=== PATIENT | female | born 1970 | race Caucasian/White ===

== ENCOUNTER 2018-08-25 07:51 | Emergency (ER) | payer BC ==
[2018-08-25] MEDS ORDERED: NA CHLORIDE 0.9% 1,000 ML ONE (09:16)
[2018-08-25] MEDS ORDERED: KETOROLAC 30 MG/ML INJ ONE (09:16)
[2018-08-25] MEDS ORDERED: ONDANSETRON 4 MG/2 ML VIAL ONE (09:16)
[2018-08-25 09:40] LABS: Absolute Monocytes 0.4 K/uL (0.1-1.3); Absolute Neutrophil 4.6 K/uL (1.8-8.0); Basophils % 1.1 % (0-1.3); Eosinophils % 3.5 % (0-4.4); Hematocrit 40.7 % (36.0-45.0); Lymphocytes % 15.9 % (15.3-44.8); MCV 86.9 fL (80-100); MPV 8.8 fL (7.6-11.3); RBC Red Blood Cell Count 4.68 M/uL (3.86-4.86)
[2018-08-25 09:44] LABS: Albumin 3.7 g/dL (3.4-5.0); Bilirubin Total 0.4 mg/dL (0.2-1.0); Potassium 4.2 mmol/L (3.5-5.1)
--- NOTE | 2018-08-25 10:31 | RAD REPORT ---
EXAM DESCRIPTION: US - CP - 08/25/2018 9:37 am CLINICAL HISTORY: DIZZINESS Drowsiness, syncope, headache COMPARISON: No comparisons TECHNIQUE: Real-time sonographic evaluation of both carotid systems was performed. Doppler interroga tion was performed with waveform tracing bilaterally. FINDINGS: Normal high resistance waveforms are noted in both external carotid arteries. The common c arotid arteries and internal carotid arteries show normal low resistance waveforms. No significant plaque formation is seen. Peak systolic and end diastolic velocity values and the ICA/ CCA ratios are in the non-hemodynamically significant range. Antegrade flow seen in both vertebral arteries. IMPRESSION: No significant atherosclerotic changes noted. No evidence of a hemodynamically significant stenosis.
--- NOTE | 2018-08-25 10:52 | RAD REPORT ---
EXAM DESCRIPTION: CT - C Spine Wo Con - 08/25/2018 10:12 am CLINICAL HISTORY: PAIN Radiculopathy COMPARISON: No comparisons FINDINGS: The cervical vertebral body heights and disc spaces are maintained. No evidence of acute cervical spine fracture or subluxation. Prevertebral soft tissues are normal in thickness. Left posterior ethmoid and sphenoid sinus opacification noted. Small tonsilliths are present bilatera lly. The left submandibular gland appears significantly fatty replaced or atrophic. Several mildly pr ominent lymph nodes are present left submandibular region. IMPRESSION: No significant cervical spine abnormality is detected. All CT scans are performed using dose optimization technique as appropriate and may include automated exposure control or mA/KV adjustment according to patient size.
--- NOTE | 2018-08-25 10:54 | RAD REPORT ---
EXAM DESCRIPTION: CT - Head angio - 08/25/2018 10:12 am CLINICAL HISTORY: headache COMPARISON: No comparisons TECHNIQUE: CT head without contrast CT angiography of the head was performed with MIPs. All CT scans are performed using dose optimization technique as appropriate and may include automated exposure control or mA/KV adjustment according to patient size. FINDINGS: No acute intracranial hemorrhage, hydrocephalus or extra-axial fluid collection. No midlin e shift is seen. The calvarium is intact. Opacification of posterior left ethmoid air cells and sphen oid sinus noted. The paranasal sinuses and mastoids are otherwise clear. No evidence of aneurysm is detected. No flow-limiting stenosis or vascular malformation identified. Antegrade flow is seen in the vertebral arteries. The vertebral arteries are codominant. The visualized dural venous sinuses are patent. IMPRESSION: No significant flow abnormality is detected. No acute intracranial abnormality.
--- NOTE | 2018-08-25 11:09 | EDPHYS ---
Physician Documentation [facility] Name: April Pinto Age: 47 yrs Sex: Female : 1970 Arrival Date: 08/25/2018 Time: 07:58 Bed 14 Private MD: Bong Buckley ED Physician Dieter Acosta HPI: 08/25 09:02 This 47 yrs old Female presents to ER via Ambulatory with complaints of harpreet Headache. 09:02 The patient complains of pain to the forehead, left side of the back of head, left harpreet occipital area and left base of the skull. The patient describes the headache as constant. Onset: The symptoms/episode began/occurred 2 day(s) ago. Associated signs and symptoms: Pertinent positives: nausea. Severity of symptoms: At its worst the pain was mild, in the emergency department the pain is unchanged. Headache History: Denies prior headaches. The symptoms are alleviated by nothing. the symptoms are aggravated by nothing. The patient has not experienced similar symptoms in the past. 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 - Social history:: Smoking status: . - Ebola Screening: : Patient negative for fever greater than or equal to 101.5 degrees Fahrenheit, and additional compatible Ebola Virus Disease symptoms. - Family history:: not pertinent. ROS: 09:02 Constitutional: Negative for fever, chills, and weight loss, Eyes: Negative for injury, harpreet pain, redness, and discharge, ENT: Negative for injury, pain, and discharge, Neck: Negative for injury, pain, and swelling, Cardiovascular: Negative for chest pain, palpitations, and edema, Respiratory: Negative for shortness of breath, cough, wheezing, and pleuritic chest pain, Abdomen/GI: Negative for abdominal pain, nausea, vomiting, diarrhea, and constipation, Back: Negative for injury and pain, : Negative for injury, bleeding, discharge, and swelling, MS/Extremity: Negative for injury and deformity, Skin: Negative for injury, rash, and discoloration, Psych: Negative for depression, anxiety, suicide ideation, homicidal ideation, and hallucinations, Allergy/Immunology: Negative for hives, rash, and allergies, Endocrine: Negative for neck swelling, polydipsia, polyuria, polyphagia, and marked weight changes, Hematologic/Lymphatic: Negative for swollen nodes, abnormal bleeding, and unusual bruising. 09:02 Neuro: Positive for headache, of the left base of the skull and left occipital area and left side of the back of head. Exam: :02 Constitutional: This is a well developed, well nourished patient who is awake, alert, harpreet and in no acute distress. Head/Face: Normocephalic, atraumatic. Eyes: Pupils equal round and reactive to light, extra-ocular motions intact. Lids and lashes normal. Conjunctiva and sclera are non-icteric and not injected. Cornea within normal limits. Periorbital areas with no swelling, redness, or edema. ENT: Nares patent. No nasal discharge, no septal abnormalities noted. Tympanic membranes are normal and external auditory canals are clear. Oropharynx with no redness, swelling, or masses, exudates, or evidence of obstruction, uvula midline. Mucous membranes moist. Neck: Trachea midline, no thyromegaly or masses palpated, and no cervical lymphadenopathy. Supple, full range of motion without nuchal rigidity, or vertebral point tenderness. No Meningismus. Chest/axilla: Normal chest wall appearance and motion. Nontender with no deformity. No lesions are appreciated. Cardiovascular: Regular rate and rhythm with a normal S1 and S2. No gallops, murmurs, or rubs. Normal PMI, no JVD. No pulse deficits. Respiratory: Lungs have equal breath sounds bilaterally, clear to auscultation and percussion. No rales, rhonchi or wheezes noted. No increased work of breathing, no retractions or nasal flaring. Abdomen/GI: Soft, non-tender, with normal bowel sounds. No distension or tympany. No guarding or rebound. No evidence of tenderness throughout. Back: No spinal tenderness. No costovertebral tenderness. Full range of motion. Female : Normal external genitalia. Skin: Warm, dry with normal turgor. Normal color with no rashes, no lesions, and no evidence of cellulitis. MS/ Extremity: Pulses equal, no cyanosis. Neurovascular intact. Full, normal range of motion. Neuro: Awake and alert, GCS 15, oriented to person, place, time, and situation. Cranial nerves II-XII grossly intact. Motor strength 5/5 in all extremities. Sensory grossly intact. Cerebellar exam normal. Normal gait. Psych: Awake, alert, with orientation to person, place and time. Behavior, mood, and affect are within normal limits. Vital Signs: 08:00 BP 134 / 50; Pulse 66; Resp 18; Temp 98.7(O); Pulse Ox 96% on R/A; Pain 8/10; tw2 09:00 BP 103 / 48; Pulse 58; Resp 17; Pulse Ox 95% on R/A; tw2 10:15 BP 128 / 52; Pulse 68; Resp 17; Pulse Ox 99% on R/A; tw2 10:59 BP 111 / 63; Pulse 59; Resp 17; Pulse Ox 97% on R/A; tw2 11:17 BP 128 / 52; Pulse 68; Resp 17; Pulse Ox 100% on R/A; tw2 MDM: 08:14 Patient medically screened. [facility] 09:04 Data reviewed: vital signs, nurses notes, lab test result(s), EKG, radiologic studies, [facility] CT scan. 08/25 09:02 Order name: CBC with Diff; Complete Time: 10:44 [facility] 08/25 09:02 Order name: Comprehensive Metabolic Panel; Complete Time: 10:44 [facility] 08/25 09:06 Order name: Urine Culture [facility] 08/25 09:12 Order name: Troponin (emerg Dept Use Only) [facility] 08/25 09:13 Order name: Troponin (Emerg Dept Use Only); Complete Time: 10:44 EDMD 08/25 09:02 Order name: CT C Spine; Complete Time: 11:08 [facility] 08/25 09:04 Order name: Head angio; Complete Time: 11:08 EDMD 08/25 09:19 Order name: US Carotid Artery Bilateral; Complete Time: 10:44 [facility] 08/25 11:01 Order name: Urine Dipstick--Ancillary (enter results) 08/25 09:06 Order name: Urine Dipstick-Ancillary (obtain specimen); Complete Time: 10:56 [facility] Administered Medications: 09:08 Drug: Zofran 4 mg Route: IVP; Site: right antecubital; tw2 10:57 Follow up: Response: No adverse reaction; Nausea is decreased tw2 09:10 Drug: TORadol 30 mg Route: IVP; Site: right antecubital; tw2 10:57 Follow up: Response: No adverse reaction; Pain is unchanged, physician notified tw2 09:12 Drug: NS 0.9% 1000 ml Route: IV; Rate: 1 bolus; Site: right antecubital; tw2 11:17 Follow up: IV Status: Order to discontinue infusion; Order to discontinue infusion, pt tw2 refused to wait for completion of IV fluids; IV Intake: 600ml Disposition: 08/25/18 11:08 Discharged to Home. Impression: Headache, Strain of muscle, fascia and tendon at neck level. - Condition is Stable. - Discharge Instructions: General Headache Without Cause, Cervical Sprain, Bbir-ue-[id number], General Headache Without Cause, Audj-ol-Xoxo. - Prescriptions for Fioricet with Codeine 50- 325-40-30 mg Oral capsule - take 1 capsule by ORAL route every 4 hours as needed not to exceed 6 capsules per 24hrs; 24 capsule. Zofran 4 mg Oral Tablet - take 1 tablet by ORAL route every 12 hours As needed; 14 tablet. Motrin IB 200 mg Oral Tablet - take 1 tablet by ORAL route every 6 hours As needed as needed with food; 20 tablet. - Medication Reconciliation Form, Thank You Letter, Antibiotic Education, Prescription Opioid Use form. - Follow up: Bong Buckley; When: 2 - 3 days; Reason: Recheck today's complaints, Continuance of care, Re-evaluation by your physician. Follow up: Louie Martinez; When: 2 - 3 days; Reason: Recheck today's complaints, Re-evaluation by your physician. - Problem is new. - Symptoms have improved. Signatures: Dispatcher [employer] [facility] Dieter Acosta MD MD cha Wise, Tara, RN RN tw2 Corrections: (The following items were deleted from the chart) 09:21 09:04 Abdomen Limited+US.RAD.MITCH ordered. [facility] 11:19 11:08 08/25/2018 11:08 Discharged to Home. Impression: Headache; Strain of muscle, tw2 fascia and tendon at neck level. Condition is Stable. Discharge Instructions: General Headache Without Cause, Cervical Sprain, Athq-zg-Isno, General Headache Without Cause, Owrv-gl-Sjpq. Prescriptions for Fioricet with Codeine 10-967-26-30 mg Oral capsule - take 1 capsule by ORAL route every 4 hours as needed not to exceed 6 capsules per 24hrs; 24 capsule, Zofran 4 mg Oral Tablet - take 1 tablet by ORAL route every 12 hours As needed; 14 tablet, Motrin IB 200 mg Oral Tablet - take 1 tablet by ORAL route every 6 hours As needed as needed with food; 20 tablet. and Forms are Medication Reconciliation Form, Thank You Letter, Antibiotic Education, Prescription Opioid Use. Follow up: Bong Buckley; When: 2 - 3 days; Reason: Recheck today's complaints, Continuance of care, Re-evaluation by your physician. Follow up: Louie Martinez; When: 2 - 3 days; Reason: Recheck today's complaints, Re-evaluation by your physician. Problem is new. Symptoms have improved. harpreet
--- NOTE | 2018-08-25 11:09 | ER ---
Nurse's Notes [facility] Name: April Pinto Age: 47 yrs Sex: Female : 1970 Arrival Date: 08/25/2018 Time: 07:58 Bed 14 Private MD: Bong Buckley Diagnosis: Headache;Strain of muscle, fascia and tendon at neck level Presentation: 08/25 07:59 Presenting complaint: Patient states: i have a headache at the base of my neck and i am tw2 nauseous, it started 3 days ago, not similar to previous headache because this wont go away and those headaches are usually stress headaches, i took ibuprofen it takes the edge off but it doesn't go away completley. Transition of care: patient was not received from another setting of care. Onset of symptoms was August 25, 2018. Risk Assessment: Do you want to hurt yourself or someone else? Patient reports no desire to harm self or others. Initial Sepsis Screen: Does the patient meet any 2 criteria? No. Patient's initial sepsis screen is negative. Does the patient have a suspected source of infection? No. Patient's initial sepsis screen is negative. Care prior to arrival: None. 07:59 Method Of Arrival: Ambulatory tw2 07:59 Acuity: LUDMILA 3 tw2 Triage Assessment: 08:03 Headache History: The patient has had previous headaches and this one is different than tw2 previous episodes, and this one is more severe than previous episodes. General: Appears in no apparent distress. well groomed, Behavior is calm, cooperative, appropriate for age. Pain: Pain currently is 8 out of 10 on a pain scale. Pain began 2-3 days ago. Also complains of nausea. Neuro: Level of Consciousness is awake, alert, obeys commands, Oriented to person, place, time, situation. 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 - Social history:: Smoking status: . - Ebola Screening: : Patient negative for fever greater than or equal to 101.5 degrees Fahrenheit, and additional compatible Ebola Virus Disease symptoms. - Family history:: not pertinent. Screenin:04 Abuse screen: Denies threats or abuse. Nutritional screening: No deficits noted. tw2 Tuberculosis screening: No symptoms or risk factors identified. Fall Risk None identified. Assessment: 08:07 General: Appears in no apparent distress. well groomed, Behavior is calm, cooperative, tw2 appropriate for age. Pain: Complains of pain in base of the skull and neck Also complains of nausea, denies photophobia. Neuro: Level of Consciousness is awake, alert, obeys commands, Oriented to person, place, time, situation. Cardiovascular: Heart tones S1 S2 Patient's skin is warm and dry. Respiratory: Airway is patent Respiratory effort is even, unlabored, Respiratory pattern is regular, symmetrical, Breath sounds are clear bilaterally. GI: No signs and/or symptoms were reported involving the gastrointestinal system. Abdomen is round Bowel sounds present X 4 quads. : No signs and/or symptoms were reported regarding the genitourinary system. EENT: No signs and/or symptoms were reported regarding the EENT system. Derm: No signs and/or symptoms reported regarding the dermatologic system. Musculoskeletal: Range of motion: intact in all extremities. 08:44 Reassessment: provider at bedside at this time. tw2 09:00 Reassessment: Patient appears in no apparent distress at this time. No changes from tw2 previously documented assessment. Patient and/or family updated on plan of care and expected duration. Pain level reassessed. Patient is alert, oriented x 3, equal unlabored respirations, skin warm/dry/pink. 10:16 Reassessment: Patient appears in no apparent distress at this time. Patient and/or tw2 family updated on plan of care and expected duration. Pain level reassessed. Patient is alert, oriented x 3, equal unlabored respirations, skin warm/dry/pink. pt back from CT at this time. c/o neck pain, better but not gone, provider notified. 11:18 Reassessment: Patient appears in no apparent distress at this time. No changes from tw2 previously documented assessment. Patient and/or family updated on plan of care and expected duration. Pain level reassessed. Patient is alert, oriented x 3, equal unlabored respirations, skin warm/dry/pink. Vital Signs: 08:00 BP 134 / 50; Pulse 66; Resp 18; Temp 98.7(O); Pulse Ox 96% on R/A; Pain 8/10; tw2 09:00 BP 103 / 48; Pulse 58; Resp 17; Pulse Ox 95% on R/A; tw2 10:15 BP 128 / 52; Pulse 68; Resp 17; Pulse Ox 99% on R/A; tw2 10:59 BP 111 / 63; Pulse 59; Resp 17; Pulse Ox 97% on R/A; tw2 11:17 BP 128 / 52; Pulse 68; Resp 17; Pulse Ox 100% on R/A; tw2 ED Course: 07:58 Patient arrived in ED. mr 07:58 Bong Buckley MD is Private Physician. mr 07:58 Loreto Mathew, [place] is Primary Nurse. tw2 07:59 Bed in low position. Adult w/ patient. Pulse ox on. NIBP on. tw2 08:00 Triage completed. tw2 08:01 Arm band placed on. tw2 08:14 Dieter Acosta MD is Attending Physician. harpreet 08:30 Inserted saline lock: 22 gauge in right antecubital area, using aseptic technique. tw2 Blood collected. 09:38 US Carotid Artery Bilateral In Process Unspecified. EDMS 10:13 Head angio In Process Unspecified. EDMS 10:13 CT C Spine In Process Unspecified. EDMS 11:08 Bong Buckley MD is Referral Physician. harpreet 11:08 Louie Martinez MD is Referral Physician. harpreet 11:13 Awaiting: completion of IV fluids PRIOR to discharge. tw2 11:18 No provider procedures requiring assistance completed. IV discontinued, intact, tw2 bleeding controlled, No redness/swelling at site. Pressure dressing applied. Administered Medications: 09:08 Drug: Zofran 4 mg Route: IVP; Site: right antecubital; tw2 10:57 Follow up: Response: No adverse reaction; Nausea is decreased tw2 09:10 Drug: TORadol 30 mg Route: IVP; Site: right antecubital; tw2 10:57 Follow up: Response: No adverse reaction; Pain is unchanged, physician notified tw2 09:12 Drug: NS 0.9% 1000 ml Route: IV; Rate: 1 bolus; Site: right antecubital; tw2 11:17 Follow up: IV Status: Order to discontinue infusion; Order to discontinue infusion, pt tw2 refused to wait for completion of IV fluids; IV Intake: 600ml Intake: 11:17 IV: 600ml; Total: 600ml. tw2 Outcome: 11:08 Discharge ordered by . harpreet 11:18 Discharged to home ambulatory, with significant other. tw2 11:18 Condition: stable 11:18 Discharge instructions given to patient, significant other, Instructed on discharge instructions, follow up and referral plans. no drinking with medication, no driving heavy equipment, medication usage, Demonstrated understanding of instructions, follow-up care, medications, Prescriptions given X 3. 11:19 Patient left the ED. tw2 Signatures: Dispatcher [employer] EDMS Dieter Acosta MD MD cha Rivera, Mirlande Loreto Adams, RN RN tw2 Corrections: (The following items were deleted from the chart) 10:59 10:15 BP 111 / 63; Pulse 59bpm; Resp 17bpm; Pulse Ox 97% RA; tw2 tw2
[2018-08-25 12:27] LABS: Urine Blood NEGATIVE (NEG); Urine Glucose NEGATIVE (NEG); Urine Protein NEGATIVE (NEG); Urine Specific Gravity 1.005 (1.005-1.030); Urine pH 5.5 (5.0-7.0)
== END 2018-08-25 11:19 | disposition home or self-care (01) ==
LOC: ER 07:51
DX: S16.1XXA Strain of muscle, fascia and tendon at neck level, initial encounter (principal)
CPT/HCPCS: 36415; 70496; 72125; 80053; 81003; 84484; 85025; 87086; 87088; 93880; 96361; 96374; 96375; 99284; J2405; J7030; Q9967

== ENCOUNTER 2021-07-09 12:38 | Emergency (ER) | payer BC ==
[2021-07-09] MEDS ORDERED: dexAMETHasone 4 MG/ML VIAL ONE (13:52)
--- NOTE | 2021-07-09 13:52 | ER ---
Nurse's Notes [facility] Name: April Pinto Age: 50 yrs Sex: Female : 1970 Arrival Date: 07/09/2021 Time: 12:40 Bed 23 Private MD: Diagnosis: Rash and other nonspecific skin eruption Presentation: 07/09 12:46 Chief complaint: Patient states: Got into some poison hyacinth about a week and a half ago, jl7 swelling to face and neck; bilateral arms with swelling and blisters. Steroid shot on Tuesday, prednisone x 5 days, hydroxyzine, tramadol, but it's still pretty bad. Coronavirus screen: At this time, the client does not indicate any symptoms associated with coronavirus-19. Ebola Screen: No symptoms or risks identified at this time. Initial Sepsis Screen: Does the patient meet any 2 criteria? No. Patient's initial sepsis screen is negative. Does the patient have a suspected source of infection? No. Patient's initial sepsis screen is negative. Risk Assessment: Do you want to hurt yourself or someone else? Patient reports no desire to harm self or others. Onset of symptoms was June 29, 2021. 12:46 Method Of Arrival: Ambulatory jl7 12:46 Acuity: LUDMILA 4 jl7 Triage Assessment: 12:50 General: Appears in no apparent distress. uncomfortable, Behavior is calm, cooperative, jl7 appropriate for age. Pain: Denies pain. Derm: Rash noted that is draining clear fluid, red, on face, right arm, left arm and neck. 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 - Social history:: Smoking status: Patient denies any tobacco usage or history of. Screenin:38 Abuse screen: Denies threats or abuse. Denies injuries from another. Nutritional tc5 screening: No deficits noted. Tuberculosis screening: No symptoms or risk factors identified. Fall Risk None identified. Assessment: 13:35 General: Appears uncomfortable, Behavior is calm, cooperative, appropriate for age. tc5 Derm: Reports pt reports she got into some poison hyacinth 2 weeks ago and face is swelling more and more. Vital Signs: 12:46 BP 155 / 95; Pulse 90; Resp 17; Temp 98.2; Pulse Ox 100% ; Weight 99.79 kg; Pain 0/10; jl7 14:01 BP 123 / 75; Pulse 72; Resp 16; Pulse Ox 100% ; vg1 ED Course: 12:40 Patient arrived in ED. as 12:48 Scott Troncoso PA is PHCP. [facility] 12:48 Dieter Acosta MD is Attending Physician. [facility] 12:49 Triage completed. jl7 12:50 Arm band placed on right wrist. 7 13:25 Nataliia Hilton, RN is Primary Nurse. tc5 Administered Medications: 13:35 Drug: Decadron (dexamethasone) 10 mg Route: IM; Site: left gluteus; tc5 14:01 Follow up: Response: No adverse reaction vg1 Outcome: 13:51 Discharge ordered by . [facility] 14:01 Patient left the ED. vg1 Signatures: Scott Troncoso PA PA jmm Martinez, Amelia as Leal, Jahala RN RN jl7 Heather Busby, RN RN vg1 Nataliia Hilton, RN RN tc5
--- NOTE | 2021-07-09 13:52 | EDPHYS ---
Physician Documentation [facility] Name: April Pinto Age: 50 yrs Sex: Female : 1970 Arrival Date: 07/09/2021 Time: 12:40 Bed 23 Private MD: Dieter Clarke HPI: 07/09 12:56 This 50 yrs old Female presents to ER via Ambulatory with complaints of jmm Facial Swelling - poison hyacinth. 12:56 The patient's rash thought to be caused by Dermatitis. Onset: The symptoms/episode jmm began/occurred gradually, 2 week(s) ago. Associated signs and symptoms: Pertinent positives: burning sensation, itching, Pertinent negatives: swelling of lips, swelling of throat, swelling of tongue. This is a 50-year-old female with history of atrial fibrillation the presents emerge department with complaints of worsening facial rash. Patient states she was exposed to poison hyacinth approximately 2 weeks ago. Saw her PCP at [facility] this past Tuesday and prescribed prednisone 40 mg daily along with Atarax. Patient states she has had little relief and actually developed increased swelling to her face. Denies vomiting, shortness of breath but does have some sensation of swelling in her throat. Patient is able to tolerate secretions. 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 - Social history:: Smoking status: Patient denies any tobacco usage or history of. ROS: 12:56 Constitutional: Negative for fever, chills, and weight loss, Cardiovascular: Negative jmm for chest pain, palpitations, and edema, Respiratory: Negative for shortness of breath, cough, wheezing, and pleuritic chest pain. 12:56 Skin: Positive for rash. 12:56 All other systems are negative. Exam: 12:56 Constitutional: This is a well developed, well nourished patient who is awake, alert, jmm and in no acute distress. 12:56 Eyes: EOMI, no conjunctival erythema appreciated ENT: Moist Mucus Membranes Neck: Trachea midline, Supple Chest/axilla: Normal chest wall appearance and motion. Cardiovascular: Regular rate and rhythm. No edema appreciated Respiratory: Normal respirations, no respiratory distress appreciated 12:56 Back: Normal ROM 12:56 Head/face: Facial swelling, rash, consistent with poison hyacinth dermatitis. 12:56 ENT: no pharyngeal edema appreciated. 12:56 Skin: Poison hyacinth dermatitis. 12:56 Neuro: Orientation: is normal, Mentation: is normal, Memory: is normal. 12:56 Psych: Behavior/mood is pleasant, cooperative. Vital Signs: 12:46 BP 155 / 95; Pulse 90; Resp 17; Temp 98.2; Pulse Ox 100% ; Weight 99.79 kg; Pain 0/10; jl7 14:01 BP 123 / 75; Pulse 72; Resp 16; Pulse Ox 100% ; vg1 MDM: 12:56 Patient medically screened. harpreet 13:50 Data reviewed: vital signs, nurses notes. Counseling: I had a detailed discussion with saroj the patient and/or guardian regarding: the historical points, exam findings, and any diagnostic results supporting the discharge/admit diagnosis, the need for outpatient follow up, to return to the emergency department if symptoms worsen or persist or if there are any questions or concerns that arise at home. ED course: Patient is alert Patient is alert nontoxic in appearance in the ED. Patient advised to follow-up with her PCP for reevaluation. Will increase steroids and taper for longer duration. Patient is otherwise given strict return precautions. Patient understood and agrees plan of care.. Administered Medications: 13:35 Drug: Decadron (dexamethasone) 10 mg Route: IM; Site: left gluteus; tc5 14:01 Follow up: Response: No adverse reaction vg1 Disposition Summary: 07/09/21 13:51 Discharge Ordered Location: Home saroj Condition: Stable saroj Diagnosis - Rash and other nonspecific skin eruption saroj Followup: saroj - With: Private Physician - When: 2 - 3 days - Reason: Recheck today's complaints, Continuance of care, Re-evaluation by your physician Discharge Instructions: - Discharge Summary Sheet saroj - Rash, Adult saroj Forms: - Medication Reconciliation Form saroj - Thank You Letter saroj - Antibiotic Education saroj - Prescription Opioid Use [facility] Prescriptions: - Prednisone 20 mg Oral Tablet - take 3 tablets by ORAL route once daily 12 days Please take 3 tabs by mouth jmm daily for 3 days, then 2 tabs by mouth daily for 3 days, then take 1 tab by mouth daily for 3 days, then take one half tab by mouth daily for 3 days; 20 tablet; Refills: 0, Product Selection Permitted Addendum: 07/13/2021 06:55 Co-signature as Attending Physician, Dieter Acosta MD I agree with the assessment and c becerril plan of care. Signatures: Dieter Acosta MD MD cha Mickail, Joel, PA PA jmm Leal, Jahala RN RN jl7 Nataliia Hilton RN RN tc5 Heather Busby RN vg1
[2021-07-09] MEDS ORDERED: dexAMETHasone 10 MG/ML VIAL ONE (13:56)
[2021-07-09 14:20] VITALS: TEMP 98.2; O2SAT 100
[2021-07-09 14:21] VITALS: BP 123/75
== END 2021-07-09 14:01 | disposition home or self-care (01) ==
LOC: ER 12:38
DX: R21 Rash and other nonspecific skin eruption (principal)
CPT/HCPCS: 96372; 99282; J1100

== ENCOUNTER 2023-10-27 19:23 | Observation (INO) | payer BC ==
--- OUTSIDE RECORDS SUMMARY | 2023-10-27 19:27 | XMS REPORT | Continuity of Care Document ---
Author Name Unknown Address [address] [place] [address] [facility]connect Address 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 Name Role Phone ADRIANE BRISENO Attending Clinician Unava ilLEELA Velazquez Attending Clinician Unavaila SCAR Nguyen Attending Clinician Unavailable KRYSTAL MIKE Attending Clinician Unavailable ADRIANE BRISENO Attending Clinician Unava ilyancy RESTREPO MD Attending Clinician Unavailab BLATA Wise Attending Clinician Unavailable CAROLYN MCKINLEY Attending Clinician Unavaila JN Carnes Attending Clinician Unavailab le LAB90 Attending Clinician Unavailable Adriane Briseno MD Attending Clinician [phone] PARRISH SHIRLEY Attending Clinician Unavailable RICHIE MAHAJAN Attending Clinician Unavailable Payers Payer Name Policy Type Policy Number Effective Date Expirati on Date Source [facility] 9 [id number] 2022 00:00:[address] [facility] [id number] 00:00:00 Problems Condition Name Condition Details Condition Category Status Onset Date Resolution Date Last Treatment Date Treating Clinician Comments Source No known active problems No known active problems Disease Tamiko Beltran - Externa l Allergies, Adverse Reactions, Alerts Allergy Name Allergy Type Status Severity Reaction(s) Onset Date Inactive Date Treating Clinician Comments Source NO KNOWN ALLERGIE S Drug Class Active [facility] Social History Social Habit Start Date Stop Date Quantity Comments Source Gender identity Lady colon Seybold - External Sexual orientation Paula vargas Seybold - External History SDOH Alcohol Frequency Tamiko Dorantes bold - External History SDOH Alcohol Std Drinks Tamiko Nogueira ybold - External History SDOH Alcohol Binge Tamiko Flynnold - External Alcohol intake 2023-08-12 00:00:00 2023-08-12 00:00:00 Current drinker of alcohol (finding) Tamiko Beltran - External History of Social function 2023-04-28 00:00:00 2023-04-28 00:00:00 Tamiko Beltran - External Tobacco use and exposure 2022-06-21 00:00:00 2022-06-21 00:00:00 Smokeless tobacco non-user Tamiko Beltran - External Alcohol Comment 2022-06-21 00:00:00 2022-06-21 00:00:00 Once a year Tamiko Beltran - External Sex Ass[birth year] At 1970 00:00:00 1970 00[birth year]:00 Tamiko Beltran - External Smoking Status Start Date Stop Date Source Never smoked tobacco Tamiko Beltran - External Medications Ordered Medication Name Filled Medication Name Start Date Stop Date Current Medication? Ordering Clinician Indication Dosage Frequency Signature (SIG) Comments Components Source Loratadine 10 MG oral Capsule 2022-10 11:56: 44 08-12 00:00 :00 No 10mg Take 1 capsule (10 mg total) by mouth daily Tamiko Vazquez Externa l Nystatin-Tr iamcinolone 401454-1.1 UNIT/GM-% apply externally Cream 2022-10 00:00: 00 Yes [id number] Apply to affected area twice daily as needed for rash. Tamiko Vazquez Externa l Pantoprazol e Sodium 20 MG oral Tablet Delayed Response 2022-10 00:00: 00 Yes [id number] 20mg Take 1 tablet (20 mg total) by mouth daily. Tamiko weber Sucralfate 1 g oral Tablet 2022-10 012 00:00: 00 Yes 1g Take 1 tablet (1 g total) by mouth at bedtime. Tamiko weber Ondansetron HCl 4 MG oral Tablet 04-28 00:00: 00 Yes [id number] 4mg Q.[id number] 3D Take 1 tablet (4 mg total) by mouth every 8 hours as needed for nausea Tamiko weber Ondansetron HCl 4 MG oral Tablet 04-28 00:00: 00 Yes [id number] 4mg Q.[id number] 3D Take 1 tablet (4 mg total) by mouth every 8 hours as needed for nausea Tamiko weber PAXLOVID STANDARD (30) (300/100) Therapy Pack 04-28 00:00: 00 05-04 04:59 :00 No [id number] Take two 150 mg nirmatrelv ir (pink) tablets with one 100 mg ritonavir (white) tablet by mouth two times daily for 5 days Tamiko weber Pantoprazol e Sodium 20 MG oral Tablet Delayed Response 04-15 00:00: 00 Yes [id number] 20mg Take 1 tablet (20 mg total) by mouth daily Tamiko weber Loratadine 10 MG oral Capsule 01-04 15:46: 18 Yes 10mg Take 1 capsule (10 mg total) by mouth daily Tamiko weber Loratadine 10 MG oral Capsule 01-04 15:46: 18 Yes 10mg Take 1 capsule (10 mg total) by mouth daily Tamiko weber Citalopram Hydrobromid e 20 MG oral Tablet 01-04 00:00: 00 Yes [id number] 20mg Take 1 tablet (20 mg total) by mouth daily Tamiko weber Citalopram Hydrobromid e 20 MG oral Tablet 01-04 00:00: 00 Yes [id number] 20mg Take 1 tablet (20 mg total) by mouth daily Tamiko Seybold - Externa l Citalopram Hydrobromid e 20 MG oral Tablet 4-04 00:00: 00 08-12 00:00 :00 No [id number] 20mg Take 1 tablet (20 mg total) by mouth daily Tamiko Seybold - Externa l Loratadine 10 MG oral Capsule 3-20 10:41: 12 Yes 10mg Take 10 mg by mouth daily Tamiko Seybold - Externa l KETOCONAZOL E, TOPICAL, (Nizoral) 2 % apply externally Shampoo 320 00:00: 00 Yes [id number] Apply as shampoo X 5 minutes, then rinse. Use 3-5 times per week for itch and scale Tamiko Seybold - Externa l KETOCONAZOL E, TOPICAL, (Nizoral) 2 % apply externally Shampoo 320 00:00: 00 Yes [id number] Apply as shampoo X 5 minutes, then rinse. Use 3-5 times per week for itch and scale Tamiko Seybold - Externa l KETOCONAZOL E, TOPICAL, (Nizoral) 2 % apply externally Shampoo 320 00:00: 00 Yes [id number] Apply as shampoo X 5 minutes, then rinse. Use 3-5 times per week for itch and scale Tamiko Seybold - Externa l KETOCONAZOL E, TOPICAL, (Nizoral) 2 % apply externally Shampoo 320 00:00: 00 08-12 00:00 :00 No [id number] Apply as shampoo X 5 minutes, then rinse. Use 3-5 times per week for itch and scale Tamiko Seybold - Externa l Cetirizine (ZYRTEC) 10 MG oral Tablet 2-27 00:00: 00 Yes Tamiko Seybold - Externa l Cetirizine (ZYRTEC) 10 MG oral Tablet 2-27 00:00: 00 Yes Tamiko Seybold - Externa l Cetirizine (ZYRTEC) 10 MG oral Tablet 2-27 00:00: 00 Yes Tamiko Seybold - Externa l Cetirizine (ZYRTEC) 10 MG oral Tablet 2-27 00:00: 00 08-12 00:00 :00 No Tamiko weber Loratadine (Claritin) 10 MG oral Capsule 2-17 11:24: 07 Yes 10mg Take 10 mg by mouth daily Tamiko weber Cyanocobala min (B-12) 3000 MCG oral Capsule 2022-0 2-06 00:00: 00 Yes Tamiko Noblea l Cyanocobala min (B-12) 3000 MCG oral Capsule 2022-0 2-06 00:00: 00 Yes Tamiko Beltran - Aidea l Cyanocobala min (B-12) 3000 MCG oral Capsule 2022-0 2-06 00:00: 00 Yes Tamiko Noblea l Cyanocobala min (B-12) 3000 MCG oral Capsule 0 2 00:00: 00 08-12 00:00 :00 No Tamiko weber Vitamin D, Ergocalcife rol, 1.25 MG (06664 UT) oral Capsule 0 11-02 00:00: 00 Yes [id number] Take 1 capsule (50,000 units total) by mouth once a week Tamiko weber Vitamin D, Ergocalcife rol, 1.25 MG (49000 UT) oral Capsule 0 11-02 00:00: 00 Yes [id number] Take 1 capsule (50,000 units total) by mouth once a week Tamiko weber Vitamin D, Ergocalcife rol, 1.25 MG (39452 UT) oral Capsule 0 11-02 00:00: 00 Yes [id number] Take 1 capsule (50,000 units total) by mouth once a week Tamiko weber Vitamin D, Ergocalcife rol, 1.25 MG (10913 UT) oral Capsule 0 11-02 00:00: 00 Yes [id number] Take 1 capsule (50,000 units total) by mouth once a week Tamiko weber Vitamin D, Ergocalcife rol, 1.25 MG (57800 UT) oral Capsule 1-31 00:00: 00 08-12 00:00 :00 No [id number] Take 1 capsule (50,000 units total) by mouth once a week Tamiko weber Pantoprazol e Sodium 20 MG oral Tablet Delayed Response -16 00:00: 00 Yes [id number] TAKE 1 TABLET(20 MG) BY MOUTH DAILY Tamiko weber Pantoprazol e Sodium 20 MG oral Tablet Delayed Response -16 00:00: 00 Yes [id number] TAKE 1 TABLET(20 MG) BY MOUTH DAILY Tamiko weber Pantoprazol e Sodium 20 MG oral Tablet Delayed Response -16 00:00: 00 Yes [id number] TAKE 1 TABLET(20 MG) BY MOUTH DAILY Tamiko weber Pantoprazol e Sodium 20 MG oral Tablet Delayed Response 10-18 00:00: 00 Yes [id number] TAKE 1 TABLET(20 MG) BY MOUTH DAILY Tamiko weber Nitrofurant oin Monohyd Macro (Macrobid) 100 MG oral Capsule 2021-10 00:00: 00 Yes [id number] 100mg Take 1 capsule (100 mg total) by mouth 2 times daily Tamiko weber Fluconazole 150 MG oral Tablet 2021-10 00:00: 00 Yes Tamiko weber Nitrofurant oin Monohyd Macro (Macrobid) 100 MG oral Capsule 2021-10- 00:00: 00 11-19 00:00 :00 No [id number] 100mg Take 1 capsule (100 mg total) by mouth 2 times daily Tamiko weber Fluconazole 150 MG oral Tablet 2021-10 00:00: 00 11-19 00:00 :00 No Tamiko weber TRIMETHOPRI M-POLYMYXIN B 67786-1.1 UNIT/ML-% ophthalmic Solution 2021-10 0-20 00:00: 00 Yes [id number] 1[drp] Apply 1 drop to eye every 4 (four) hours Tamiko weber TRIMETHOPRI M-POLYMYXIN B 67478-5.1 UNIT/ML-% ophthalmic Solution 2021-10 0- 00:00: 00 Yes [id number] 1[drp] Apply 1 drop to eye every 4 (four) hours Tamiko weber TRIMETHOPRI M-POLYMYXIN B 63820-5.1 UNIT/ML-% ophthalmic Solution 2021-10 0 00:00: 00 12-20 00:00 :00 No [id number] 1[drp] Apply 1 drop to eye every 4 (four) hours Tamiko weber Cetirizine HCl (ZYRTEC ALLERGY OR) 2021-10 0 09:24: 31 07-05 00:00 :00 No 10mg Take 10 mg by mouth daily Tamiko weber Dexamethaso ne (DECADRON) 4 MG oral tablet 2021-10 0 00:00: 00 Yes [id number] 4mg Take 1 tablet (4 mg total) by mouth daily (with breakfast) Tamiko weber Fluocinonid e 0.05 % apply externally Solution 06-21 00:00: 00 07-05 00:00 :00 No [id number] Apply sparingly to rash of scalp BID Mon-Tue PRN. NOT for face or folds Tamiko weber Amoxicillin -Pot Clavulanate 500-125 MG oral Tablet 2020-10 0-08 00:00: 00 Yes [id number] 1{tbl} Take 1 tablet by mouth 3 times daily Tamiko Beltran Amoxicillin -Pot Clavulanate 500-125 MG oral Tablet 2020-10 0 00:00: 00 Yes [id number] 1{tbl} Take 1 tablet by mouth 3 times daily Tamiko Beltran traMADol-Ac etaminophen 37.5-325 MG oral Tablet 2020-10 0- 00:00: 00 Yes [id number] 1{tbl} Q6H Take 1 tablet by mouth every 6 hours as needed for pain Tamiko Beltran traMADol-Ac etaminophen 37.5-325 MG oral Tablet 2020-10 0- 00:00: 00 Yes [id number] 1{tbl} Q6H Take 1 tablet by mouth every 6 hours as needed for pain Tamiko Ruby traMADol-Ac etaminophen 37.5-325 MG oral Tablet 2020-10 0-06 00:00: 00 Yes [id number] 1{tbl} Q6H Take 1 tablet by mouth every 6 hours as needed for pain Tamiko Nogueiravladislavhelder hydrOXYzine HCl 25 MG oral Tablet 2020-10 0-05 00:00: 00 Yes [id number] 25mg Q.[id number] 3D Take 1 tablet (25 mg total) by mouth 3 times daily as needed for itching Tamiko Nogueiravladislavhelder hydrOXYzine HCl 25 MG oral Tablet 2020-10 005 00:00: 00 Yes [id number] 25mg Q.[id number] 3D Take 1 tablet (25 mg total) by mouth 3 times daily as needed for itching Tamikoearlene Beltran Methylpredn isolone Acetate (DEPO-MEDRO L) 40 mg/mL 2020-10 0 16:45: 00 07-06 16:30 :00 No [id number] 40mg Tamiko Ruby Methylpredn isolone Acetate (DEPO-MEDRO L) 40 mg/mL 2020-10 0 16:45: 00 07-06 16:30 :00 No [id number] 40mg 40 mg, intramuscu lar, ONCE, 1 dose, On Tue07/06/21 at 1145 Tamiko Beltran predniSONE 20 MG oral tablet 2020-10 0-04 00:00: 00 07-12 04:59 :00 No [id number] 40mg Take 2 tablets (40 mg total) by mouth daily for 5 days Tamiko Beltran predniSONE 20 MG oral tablet 2020-10 0-04 00:00: 00 07-12 04:59 :00 No [id number] 40mg Take 2 tablets (40 mg total) by mouth daily for 5 days Tamiko Beltran Mupirocin (BACTROBAN) 2 % apply externally Ointment 2020-10 0-03 00:00: 00 Yes APPLY TOPICALLY TO THE AFFECTED AREA TWICE DAILY DIRECTED Tamiko Beltran Triamcinolo ne Acetonide 0.1 % apply externally Ointment 2020-10 0-03 00:00: 00 Yes APPLY TOPICALLY TO THE AFFECTED AREA TWICE DAILY DIRECTED Tamiko Beltran Mupirocin (BACTROBAN) 2 % apply externally Ointment 2020-10 0 00:00: 00 07-17 00:00 :00 No APPLY TOPICALLY TO THE AFFECTED AREA TWICE DAILY DIRECTED Tamiko Beltran Triamcinolo ne Acetonide 0.1 % apply externally Ointment 2020-10 00:00: 00 07-17 00:00 :00 No APPLY TOPICALLY TO THE AFFECTED AREA TWICE DAILY DIRECTED Tamiko Beltran Propranolol HCl 20 MG oral Tablet 01-26 00:00: 00 Yes 20mg Take 20 mg by mouth daily Tamiko Vazquez Externa tia Propranolol HCl 20 MG oral Tablet 01-26 00:00: 00 Yes 20mg Take 20 mg by mouth daily Tamiko Vazquez Externa tia Propranolol HCl 20 MG oral Tablet 01-26 00:00: 00 Yes 20mg Take 20 mg by mouth daily Tamiko Noblea tia Propranolol HCl 20 MG oral Tablet 01-26 00:00: 00 Yes 20mg Take 20 mg by mouth daily Tamiko Noblea tia Propranolol HCl 20 MG oral Tablet 01-26 00:00: 00 Yes 20mg Take 1 tablet (20 mg total) by mouth daily Tamiko Noblea tia Propranolol HCl 20 MG oral Tablet 01-26 00:00: 00 Yes 20mg Take 20 mg by mouth daily Tamiko Beltran Propranolol HCl 20 MG oral Tablet 01-26 00:00: 00 Yes 20mg Take 1 tablet (20 mg total) by mouth daily Tamiko Vazquez Externa tia Propranolol HCl 20 MG oral Tablet 01-26 00:00: 00 Yes 20mg Take 1 tablet (20 mg total) by mouth daily. Tamiko Vazquez Externa tia Propranolol HCl 20 MG oral Tablet 01-26 00:00: 00 Yes 20mg Take 20 mg by mouth daily Tamiko Beltran Propranolol HCl 20 MG oral Tablet 01-26 00:00: 00 Yes 20mg Take 20 mg by mouth daily Tamiko Seybold Immunizations Ordered Immunization Name Filled Immunization Name Date Status Comments Source Tdap- (Boostrix, Adacel) 2016-09-07 00:00:00 Completed Tamiko Flynnold - External Tdap- (Boostrix, Adacel) 2016-09-07 00:00:00 Completed Tamiko Beltran - External Tdap- (Boostrix, Adacel) 2016-09-07 00:00:00 Completed Tamiko Beltran - External Tdap- (Boostrix, Adacel) 2016-09-07 00:00:00 Completed Tamiko Beltran - External Tdap- (Boostrix, Adacel) 2016-09-07 00:00:00 Completed Tamiko Beltran - External Tdap- (Boostrix, Adacel) 2016-09-07 00:00:00 Completed Tamiko Beltran - External Tdap- (Boostrix, Adacel) 2016-09-07 00:00:00 Completed Tamiko Beltran Tdap- (Boostrix, Adacel) 2016-09-07 00:00:00 Completed Tamiko Beltran Tdap- (Boostrix, Adacel) 2016-09-07 00:00:00 Completed Tamiko Beltran Tdap- (Boostrix, Adacel) Unknown Completed Tamiko Beltran - External Vital Signs Vital Name Observation Time Observation Value Comments S ource Systolic blood pressure 2023-08-12 20:56:00 130 mm[Hg] Tamiko Thomas ld - External Diastolic blood pressure 2023-08-12 20:56:00 82 mm[Hg] Tamiko Thomas ld - External Heart rate 2023-08-12 20:56:00 58 /min Raulse corby Beltran - External Body temperature 2023-08-12 20:56:00 36.39 Annamarie Tamiko Beltran - External Respiratory rate 2023-08-12 20:56:00 15 /min Tamiko Beltran - External Body height 2023-08-12 20:56:00 154.9 cm Lady isaiah Beltran - External Body weight 2023-08-12 20:56:00 102.513 kg Lady isaiah Seybold - External BMI 2023-08-12 20:56:00 42.70 kg/m2 Lady ey Seybold - External Systolic blood pressure 2023-01-04 20:37:00 126 mm[Hg] Tamiko Seybo ld - External Diastolic blood pressure 2023-01-04 20:37:00 68 mm[Hg] Tamiko Seybo ld - External Heart rate 2023-01-04 20:37:00 76 /min Kelse y Seybold - External Respiratory rate 2023-01-04 20:37:00 16 /min Tamiko Seybold - External Body height 2023-01-04 20:37:00 154.9 cm Lady ey Seybold - External Body weight 2023-01-04 20:37:00 102.059 kg Lady ey Seybold - External BMI 2023-01-04 20:37:00 42.51 kg/m2 Lady ey Seybold - External Body weight 2022-12-20 15:40:00 93.895 kg Lady ey Seybold - External BMI 2022-12-20 15:40:00 39.11 kg/m2 Lady ey Seybold - External Systolic blood pressure 2022-11-19 17:24:00 121 mm[Hg] Tamiko Seybo ld - External Diastolic blood pressure 2022-11-19 17:24:00 85 mm[Hg] Tamiko Seybo ld - External Heart rate 2022-11-19 17:24:00 71 /min Raulse y Seybold - External Body temperature 2022-11-19 17:24:00 36.83 Annamarie Tamiko Seybold - External Respiratory rate 2022-11-19 17:24:00 12 /min Tamiko Seybold - External Body height 2022-11-19 17:24:00 154.9 cm Lady ey Seybold - External Body weight 2022-11-19 17:24:00 94.167 kg Lady ey Seybold - External BMI 2022-11-19 17:24:00 39.23 kg/m2 Lady ey Seybold - External Systolic blood pressure 2022-10-21 17:30:00 148 mm[Hg] Tamiko Seybo ld - External Diastolic blood pressure 2022-10-21 17:30:00 92 mm[Hg] Tamiko Seybo ld - External Heart rate 2022-10-21 17:30:00 77 /min Kelse y Seybold - External Body temperature 2022-10-21 17:30:00 36.67 Annamarie Tamiko Seybold - External Respiratory rate 2022-10-21 17:30:00 15 /min Tamiko Seybold - External Body height 2022-10-21 17:30:00 157.5 cm Lady ey Seybold - External Body weight 2022-10-21 17:30:00 101.606 kg Lady ey Seybold - External BMI 2022-10-21 17:30:00 40.97 kg/m2 Lady ey Seybold - External Systolic blood pressure 2022-07-05 15:37:00 112 mm[Hg] Tamiko Seybo ld - External Diastolic blood pressure 2022-07-05 15:37:00 68 mm[Hg] Tamiko Seybo ld - External Heart rate 2022-07-05 15:37:00 92 /min Kelse y Seybold - External Body temperature 2022-07-05 15:37:00 36.28 Annamarie Tamiko Seybold - External Respiratory rate 2022-07-05 15:37:00 14 /min Tamiko Seybold - External Body height 2022-07-05 15:37:00 157.5 cm Lady ey Seybold - External Body weight 2022-07-05 15:37:00 98.431 kg Lady ey Seybold - External BMI 2022-07-05 15:37:00 39.69 kg/m2 Lady ey Seybold - External Systolic blood pressure 2021-07-17 14:40:00 129 mm[Hg] Tamiko Seybo ld Diastolic blood pressure 2021-07-17 14:40:00 69 mm[Hg] Tamiko Seybo ld Heart rate 2021-07-17 14:40:00 80 /min Kelse y Seybold Body temperature 2021-07-17 14:40:00 36.33 Annamarie Tamiko Seybold Respiratory rate 2021-07-17 14:40:00 14 /min Tamiko Seybold Body height 2021-07-17 14:40:00 157.5 cm Lady ey Seybold Body weight 2021-07-17 14:40:00 98.884 kg Lady ey Seybold BMI 2021-07-17 14:40:00 39.87 kg/m2 Lady ey Seybold Systolic blood pressure 2021-07-17 14:40:00 129 mm[Hg] Tamiko Seybo ld Diastolic blood pressure 2021-07-17 14:40:00 69 mm[Hg] Tamiko Seybo ld Heart rate 2021-07-17 14:40:00 80 /min Kelse y Seybold Body temperature 2021-07-17 14:40:00 36.33 Annamarie Tamiko Seybold Respiratory rate 2021-07-17 14:40:00 14 /min Tamiko Seybold Body height 2021-07-17 14:40:00 157.5 cm Lady ey Seybold Body weight 2021-07-17 14:40:00 98.884 kg Lady ey Seybold BMI 2021-07-17 14:40:00 39.87 kg/m2 Lady ey Seybold Heart rate 2021-07-10 14:29:00 82 /min Kelse y Seybold Body temperature 2021-07-10 14:29:00 36.5 Annamarie Tamiko Seybold Respiratory rate 2021-07-10 14:29:00 12 /min Tamiko Seybold Body height 2021-07-10 14:29:00 157.5 cm Lady ey Seybold Body weight 2021-07-10 14:29:00 99.791 kg Lady ey Seybold BMI 2021-07-10 14:29:00 40.24 kg/m2 Lady ey Seybold Heart rate 2021-07-06 15:57:00 92 /min Kelse y Seybold Body temperature 2021-07-06 15:57:00 36.56 Annamarie Tamiko Seybold Respiratory rate 2021-07-06 15:57:00 12 /min Tamiko Seybold Body height 2021-07-06 15:57:00 157.5 cm Lady ey Seybold Body weight 2021-07-06 15:57:00 99.791 kg Lady ey Seybold BMI 2021-07-06 15:57:00 40.24 kg/m2 Lady ey Seybold Heart rate 2021-07-06 15:57:00 92 /min Kelse y Seybold Body temperature 2021-07-06 15:57:00 36.56 Annamarie Tamiko Beltran Respiratory rate 2021-07-06 15:57:00 12 /min Tamiko Beltran Body height 2021-07-06 15:57:00 157.5 cm Lady Beltran Body weight 2021-07-06 15:57:00 99.791 kg Lady Beltran BMI 2021-07-06 15:57:00 40.24 kg/m2 Lady Beltran Encounters Start Date/Time End Date/Time Encounter Type Admission Type Attending [facility] Care Department Encounter ID Source 2021-09-24 11:34:47 Outpatient ADRIANE BRISENO [facility] [id number] [facility] 2023-10-25 00:00:00 2023-10-25 00:00:[address] [id number] Tam[facility] 2023-10-19 00:00:00 2023-10-19 00:00:00 Outpatient TAMIKO GASTON [id number] [facility] 2023-10-06 00:00:00 2023-10-06 00:00:00 Outpatient SCAR MARIO [id number] [facility] 2023-09-20 00:00:00 2023-09-20 00:00:00 Outpatient SCAR MARIO [id number] [facility] 2023-09-15 00:00:00 2023-09-15 00:00:00 Outpatient SCAR MARIO [id number] [facility] 2023-08-12 15:00:00 2023-08-12 15:00:00 Outpatient SCAR MARIO [id number] [facility] 2023-08-06 00:00:00 2023-08-06 00:00:00 Outpatient SCAR MARIO [id number] [facility] 2023-07-21 10:45:00 2023-07-21 10:45:00 Outpatient KRYSTAL MIKE [id number] [facility] 2023-07-07 10:00:00 2023-07-07 10:00:00 Outpatient KRYSTAL MIKE TAMIKO GASTON [id number] Tamiko Seybold 2023-07-04 00:00:00 2023-07-04 00:00:00 Outpatient TAMIKO GASTON [id number] Tamiko Seybold 2023-07-04 00:00:00 2023-07-04 00:00:00 Outpatient TAMIKO GASTON [id number] Tamiko Seybold 2023-06-24 00:00:00 2023-06-24 00:00:00 Outpatient TAMIKO GASTON [id number] Tamiko Seybold 2023-06-09 00:00:00 2023-06-09 00:00:00 Outpatient SCAR MARIO [id number] Tamiko Seybold 2023-05-27 00:00:00 2023-05-27 00:00:00 Outpatient TAMIKO GASTON [id number] [facility] 2023-05-24 00:00:00 2023-05-24 00:00:00 Outpatient ADRIANE BRISENO [id number] Tamiko Seybold 2023-05-24 00:00:00 2023-05-24 00:00:00 Outpatient MD TAMIKO LUJAN [id number] [facility] 2023-05-23 00:00:00 2023-05-23 00:00:00 Outpatient ADRIANE BRISENO [id number] Tamiko Seybold 2023-05-09 00:00:00 2023-05-09 00:00:00 Outpatient ADRIANE BRISENO [id number] Tamiko Seybold 2023-05-09 00:00:00 2023-05-09 00:00:00 Outpatient ADRIANE BRISENO [id number] Tamiko Seybold 2023-05-09 00:00:00 2023-05-09 00:00:00 Outpatient TAMIKO GASTON [id number] Tamiko Seybold 2023-05-09 00:00:00 2023-05-09 00:00:00 Outpatient TAMIKO GASTON [id number] Tamiko Seybold 2023-05-09 00:00:00 2023-05-09 00:00:00 Outpatient TAMIKO GASTON [id number] Tamiko [facility] 2023-04-28 09:30:00 2023-04-28 09:30:00 Outpatient KRYSTAL MIKE TAMIKO GASTON [id number] Tam[facility] 2023-04-28 08:45:00 2023-04-28 08:45:00 Outpatient BALTA SHELTON TAMIKO GASTON [id number] Tam[facility] 2023-04-19 00:00:00 2023-04-19 00:00:00 Outpatient MD [facility] LUJAN [id number] [facility]14 00:00:00 2023-04-14 00:00:00 Outpatient SCAR MARIO [id number] [facility] 2023-04-13 00:00:00 2023-04-13 00:00:00 Outpatient SCAR MARIO [id number] [facility] 2023-04-13 00:00:00 2023-04-13 00:00:00 Outpatient SCAR MARIO [id number] [facility] 2023-02-22 15:30:00 2023-02-22 15:30:[address] [id number] [facility] 2023-01-19 00:00:00 2023-01-19 00:00:00 Outpatient SCAR MARIO [id number] Tam[facility] 2023-01-06 00:00:00 2023-01-06 00:00:[address] [id number] Tam[facility] 2023-01-04 15:30:00 2023-01-04 15:30:[address] LE[address] [id number] Tam[facility] 2022-12-24 10:00:00 2022-12-24 10:00:00 Outpatient CAROLYN MCKINLEY [id number] [facility] 2022-12-20 10:30:00 2022-12-20 10:30:00 Outpatient JN BARRETO TAMIKO GASTON [id number] [facility] 2022-12-17 11:00:00 2022-12-17 11:00:00 Outpatient CAROLYN MCKINLEY TAMIKO GASTON [id number] [facility] 2022-12-06 09:45:00 2022-12-06 09:45:00 Outpatient TAMIKO GASTON [id number] [facility] 2022-12-01 00:00:00 2022-12-01 00:00:00 Outpatient HUNDTia, SCAR GASTON [id number] [facility] 2022-11-22 00:00:00 2022-11-22 00:00:00 Outpatient HUNDTia, SCAR GASTON [id number] [facility] 2022-11-19 11:15:00 2022-11-19 11:15:00 Outpatient CODIE MCKINLEYSANDY GASTON [id number] [facility] 2022-11-05 00:00:00 2022-11-05 00:00:00 Outpatient HUNDL, SCAR GASTON [id number] [facility] 2022-11-04 00:00:00 2022-11-04 00:00:00 Outpatient HUNDTia, SCAR GASTON [id number] [facility] 2022-11-03 00:00:00 2022-11-03 00:00:00 Outpatient HUNDL, SCAR GASTON [id number] [facility] 2022-11-02 00:00:00 2022-11-02 00:00:00 Outpatient HUNDL, SCAR GASTON [id number] Tamiko Seybold 2022-10-26 09:10:00 2022-10-26 09:10:00 Outpatient LABValeria GASTON [id number] Tamiko Seybhelder 2022-10-21 11:00:00 2022-10-21 11:00:00 Outpatient HUNDL, SCAR GASTON [id number] [facility] 00:00:00 2022-10-21 00:00:00 Outpatient HUNDL, SCAR TAMIKO GASTON [id number] Tamiko Seybold 2022-10-18 00:00:00 2022-10-18 00:00:00 Outpatient HUNDL, SCAR TAMIKO GASTON [id number] Tamiko Seybold 2022-10-17 00:00:00 2022-10-17 00:00:00 Outpatient HUNDL, SCAR TAMIKO GASTON [id number] Tamiko Seybold 2022-10-06 09:45:00 2022-10-06 09:45:00 Outpatient MARY LOUPRIYANKJN TAMIKO GASTON [id number] Tamiko Seybold 2022-10-06 00:00:00 2022-10-06 00:00:00 Outpatient HUNDTia, SCAR TAMIKO GASTON [id number] Tamiko Seybold 2022-10-06 00:00:00 2022-10-06 00:00:00 Outpatient TAMIKO GASTON [id number] Tamiko Seybold 2022-07-26 00:00:00 2022-07-26 00:00:00 Outpatient HUNDL, SCAR TAMIKO GASTON [id number] Tamiko Seybold 2022-07-22 10:25:00 2022-07-22 10:25:00 Outpatient LAB90 TAMIKO GASTON [id number] Tamiko Seybold 2022-07-22 09:30:00 2022-07-22 09:30:00 Outpatient HUNDL, SCAR TAMIKO GASTON [id number] Tamiko Seybold 2022-07-05 10:30:00 2022-07-05 10:30:00 Outpatient HUNDL, SCAR TAMIKO GASTON [id number] Tamiko Seybold 2022-07-05 10:00:00 2022-07-05 10:00:00 Outpatient ADRIANE BRISENO [id number] Tamiko Seybold 2022-06-21 10:30:00 2022-06-21 10:30:00 Outpatient MARY LOUJN HOPE TAMIKO GASTON [id number] Tamiko Seybold 2022-06-20 00:00:00 2022-06-20 00:00:00 Outpatient SCAR MARIO TAMIKO TAMIKO [id number] [facility] 2022-06-17 00:00:00 2022-06-17 00:00:00 Outpatient SCAR MARIO TAMIKO GASTON [id number] [facility] 2022-06-15 16:00:00 2022-06-15 16:00:00 Outpatient SCAR MARIO TAMIKO GASTON [id number] [facility] 2022-05-03 00:00:00 2022-05-03 00:00:00 Outpatient ADRIANE BRISENO TAMIKO GASTON [id number] Tamiko [facility] 2022-03-26 16:45:00 2022-03-26 16:45:00 Outpatient LIYZ TAMIKO GASTON [id number] Tamiko [facility] 2022-03-26 16:15:00 2022-03-26 16:30:00 Office Visit Adriane Briseno [place] [id number] Tamiko [facility] 2021-10-30 00:00:00 2021-10-30 00:00:00 Outpatient TAMIKO GASTON [id number] Tamiko [facility] 2021-10-30 00:00:00 2021-10-30 00:00:00 Outpatient TAMIKO GASTON [id number] Tamiko [facility] 2021-10-08 00:00:00 2021-10-08 00:00:00 Outpatient ADRIANE BRISENO [id number] Tamiko [facility] 2021-09-16 00:00:00 2021-09-16 00:00:00 Outpatient ADRIANE BRISENO [id number] Tamiko [facility] 2021-09-16 00:00:00 2021-09-16 00:00:00 Outpatient ADRIANE BRISENO [id number] Tamiko [facility] 2021-09-15 00:00:00 2021-09-15 00:00:00 Outpatient TAMIKO GASTON [id number] Tamiko [facility] 2021-09-14 00:00:00 2021-09-14 00:00:00 Outpatient ADRIANE BRISENO [facility]IKO GASTON [id number] [facility] 2021-09-14 00:00:00 2021-09-14 00:00:00 Outpatient ADRIANE BRISENO TAMIKO GASTON [id number] Tamiko [facility] 2021-09-10 15:21:00 2021-09-10 23:59:00 Outpatient FINNTY HDZAN [facility] [id number] [facility] 2021-08-18 00:00:00 2021-08-18 00:00:00 Outpatient TY BRISENOJEANNE GASTON [id number] Tamiko [facility] 2021-08-17 00:00:00 2021-08-17 00:00:00 Outpatient TY BRISENOJEANNE GASTON [id number] Tamiko [facility] 2021-08-06 00:00:00 2021-08-06 00:00:00 Outpatient FINNTY HDZJEANNE GASTON [id number] [facility] 2021-07-27 00:00:00 2021-07-27 00:00:00 Outpatient ADRIANE BRISENO TAMIKO GASTON [id number] [facility] 2021-07-17 09:30:52 2021-07-17 10:00:52 Office Visit Adriane Briseno [place] [id number] 2021-07-17 09:30:52 2021-07-17 10:00:52 Office Visit Adriane Briseno [place] [id number] Tamiko [facility] 2021-07-17 00:00:00 2021-07-17 00:00:00 Outpatient ADRIANE BRISENO TAMIKO GASTON [id number] Tamiko [facility] 2021-07-10 09:23:42 2021-07-10 09:53:42 Office Visit Adriane Briseno [place] [id number] [facility] 2021-07-09 00:00:00 2021-07-09 00:00:00 Outpatient ADRIANE BRISENO TAMIKO GASTON [id number] [facility] 2021-07-08 00:00:00 2021-07-08 00:00:00 Outpatient ADRIANE BRISENO TAMIKO GASTON [id number] Tamiko [facility] 2021-07-07 00:00:00 2021-07-07 00:00:00 Outpatient ADRIANE BRISENO TAMIKO GASTON [id number] Tamiko [facility] 2021-07-06 10:56:35 2021-07-06 11:26:35 Office Visit Adriane Briseno [place] [id number] Tamiko [facility] 2021-07-06 10:56:35 2021-07-06 11:26:35 Office Visit Adriane Briseno [place] [id number] 2021-05-19 16:55:00 2021-05-19 16:55:00 Outpatient LAB90 TAMIKO GASTON [id number] Tamiko [facility] 2021-05-14 08:30:00 2021-05-14 08:30:00 Outpatient LAB90 TAMIKO GASTON [id number] Tamiko [facility] 2021-04-27 10:30:00 2021-04-27 10:30:00 Outpatient ADRIANE BRISENO TAMIKO GASTON [id number] Tamiko [facility] 2021-04-23 16:30:00 2021-04-23 16:30:00 Outpatient ADRIANE BRISENO TAMIKO GASTON [id number] Tamiko [facility] 2021-04-22 15:00:00 2021-04-22 15:00:00 Outpatient PARRISH SHIRLEY [id number] [facility] 2020-12-02 11:10:00 2020-12-02 11:10:00 Outpatient RICHIE MUNOZ [facility] [id number] [facility] 2020-12-02 11:10:00 2020-12-02 11:10:00 Outpatient RICHIE MUNOZ [facility] [id number] [facility] 2020-11-04 11:10:00 2020-11-04 11:10:00 Outpatient RICHIE MUNOZ [facility] [id number] [facility]
[2023-10-27] MEDS ORDERED: ASPIRIN 81 MG CHEWABLE TABLET ONE (19:51)
[2023-10-27] MEDS ORDERED: LORAZEPAM 0.5 MG TABLET ONE (20:01)
[2023-10-27] MEDS ORDERED: LORazepam 2 MG/ML VIAL ONE (20:04)
[2023-10-27 20:11] LABS: Absolute Lymphocytes (CBC) 1.5 K/uL (0.7-4.9); Hematocrit 38.6 % (36.0-45.0); Lymphocytes % 15.6 % (15.3-44.8); MCV 80.6 fL (80-100); MPV 7.5 fL (7.6-11.3); Platelets 333 thou/uL (152-406); RBC Red Blood Cell Count 4.79 M/uL (3.86-4.86)
[2023-10-27 20:18] LABS: Protime INR 1.11
[2023-10-27 20:34] LABS: Albumin 3.6 g/dL (3.4-5.0); Bilirubin Direct 0.1 mg/dL (0-0.2); Bilirubin Indirect, Calculated 0.3 mg/dL (0.2-0.8); Bilirubin Total 0.4 mg/dL (0.2-1.0); Magnesium 2.3 mg/dL (1.6-2.4); Potassium 3.4 mEq/L (3.5-5.1); Protein, Total 7.4 g/dL (6.4-8.2); Troponin High Sensitivity 3.8 pg/mL (<58.9)
--- NOTE | 2023-10-27 20:47 | RAD REPORT ---
EXAM DESCRIPTION: [place] Single View10/27/2023 7:58 pm CLINICAL HISTORY: Chest pain COMPARISON: 2009 FINDINGS: The lungs appear clear of acute infiltrate. The heart is normal size IMPRESSION: No acute abnormalities displayed
[2023-10-27] MEDS ORDERED: MORPHINE 4 MG/ML SYR ONE (22:22)
[2023-10-27] MEDS ORDERED: POTASS/SODIUM PHOSPHATE 1 PKT POWD.PACK ONE (22:22)
[2023-10-27] MEDS ORDERED: LABETALOL 20 MG/4ML SYRINGE IV ONE (22:23)
[2023-10-27] MEDS ORDERED: NA CHLORIDE 0.9% 1,000 ML ONE (22:23)
[2023-10-27 22:30] LABS: Specific Gravity 1.016 (1.005-1.030); Urine Bacteria None Seen /HPF (<20); Urine Bilirubin NEGATIVE (Negative); Urine Blood Negative (Negative); Urine Clarity Turbid (Clear); Urine Color Light-Yellow (Yellow); Urine Glucose NEGATIVE (Negative); Urine Mucus Slight /HPF (None Seen); Urine Protein NEGATIVE (Negative); Urine RBC <5 /HPF (None Seen); Urine Urobilinogen Normal (Normal); Urine pH 5.5 (5.0-7.0)
[2023-10-27 22:34] LABS: Barbiturates NEGATIVE (NEGATIVE); Benzodiazepines NEGATIVE (NEGATIVE); Cocaine NEGATIVE (NEGATIVE); METHAMPHETAM NEGATIVE (NEGATIVE); Methadone NEGATIVE (NEGATIVE); Opiates NEGATIVE (NEGATIVE); Phencyclidine NEGATIVE (NEGATIVE); THC Cannibis NEGATIVE (NEGATIVE)
--- NOTE | 2023-10-27 23:59 | EDPHYS ---
Physician Documentation [facility] Name: April Pinto Age: 52 yrs Sex: Female : 1970 Arrival Date: 10/27/2023 Time: 19:23 Bed 16 Private MD: ED Physician Juanjo Yin HPI: 10/27 19:45 This 52 yrs old Female presents to ER via Unassigned with complaints of Chest Pain. cp 19:45 The patient or guardian reports chest pain that is located primarily in the substernal cp area. 19:45 Onset: today. The pain does not radiate. Associated signs and symptoms: Pertinent cp positives: palpitations, Pertinent negatives: abdominal pain, diaphoresis, lower extremity pain, lower extremity swelling, vomiting. The chest pain is described as a heaviness, a pressure. Duration: The patient or guardian reports a single episode, that is still ongoing. Severity of pain: in the emergency department the pain is unchanged despite home interventions. Historical: - Allergies: 19:49 No Known Allergies; tl4 - Home Meds: 19:49 propranolol 10 mg Oral tab 1 tab 3 times per day [Active]; citalopram 10 mg oral tablet tl4 1 tab daily [Active]; - PMHx: 19:49 Atrial fibrillation; Anxiety; tl4 - PSHx: 19:49 Cholecystectomy; tl4 - Immunization history:: Adult Immunizations unknown. - Social history:: Smoking status: Patient denies any tobacco usage or history of. ROS: 19:50 Constitutional: Negative for body aches, chills, fever, poor PO intake, cp 19:50 Eyes: Negative for injury, pain, redness, and discharge, cp 19:50 ENT: Negative for drainage from ear(s), ear pain, sore throat, difficulty swallowing, difficulty handling secretions, 19:50 Cardiovascular: Positive for chest pain, palpitations, Negative for edema, 19:50 Respiratory: Negative for cough, shortness of breath, wheezing, 19:50 Abdomen/GI: Negative for abdominal pain, vomiting, diarrhea, constipation, 19:50 Back: Negative for pain at rest, pain with movement, 19:50 Neuro: Negative for altered mental status, dizziness, headache, syncope, weakness, 19:50 All other systems are negative, Exam: 19:55 Constitutional: The patient appears in no acute distress, alert, awake, cp non-diaphoretic, non-toxic, well developed, well nourished, obese, 19:55 Head/Face: Normocephalic, atraumatic. cp 19:55 Eyes: Periorbital structures: appear normal, Conjunctiva: normal, no exudate, no injection, Sclera: no appreciated abnormality, Lids and lashes: appear normal, bilaterally, 19:55 ENT: External ear(s): are unremarkable, Nose: is normal, Mouth: Lips: moist, Oral mucosa: pink and intact, moist, Posterior pharynx: is normal, airway is patent, no erythema, no exudate, 19:55 Neck: ROM/movement: is normal, is supple, without pain, no range of motions limitations, 19:55 Chest/axilla: Inspection: normal, 19:55 Cardiovascular: Rate: normal, Rhythm: regular, Edema: is not appreciated, JVD: is not appreciated, 19:55 Respiratory: the patient does not display signs of respiratory distress, Respirations: normal, no use of accessory muscles, no retractions, labored breathing, is not present, Breath sounds: are clear throughout, no decreased breath sounds, no stridor, no wheezing, 19:55 Abdomen/GI: Inspection: Palpation: abdomen is soft and non-tender, in all quadrants, 19:55 Back: pain, is absent, ROM is normal, 19:55 Neuro: Orientation: to person, place \T\ time. Mentation: is normal, Motor: is normal, Sensation: is normal, Vital Signs: 19:46 BP 182 / 90; Pulse 87; Resp 14; Temp 98.3(O); Pulse Ox 96% on R/A; Pain 0/10; tl4 20:30 BP 137 / 75; Pulse 76; Resp 11; Pulse Ox 95% on R/A; me1 21:27 BP 155 / 84; Pulse 130; Resp 12; Pulse Ox 97% on R/A; Pain 5/10; me1 21:27 BP 144 / 82; Pulse 84; Resp 13; Pulse Ox 97% on R/A; me1 22:06 BP 144 / 82; Pulse 79; Pulse Ox 96% on R/A; nw1 22:40 BP 143 / 83; Pulse 127; Resp 19; Pulse Ox 98% on R/A; nw1 23:20 BP 128 / 84; Pulse 79; Pulse Ox 95% on R/A; nw 23:30 BP 130 / 71; Pulse 78; Resp 17; Pulse Ox 95% ; 10/28 00:00 BP 120 / 73; Pulse 76; Pulse Ox 94% on R/A; nw 02:00 BP 116 / 66; Pulse 79; Resp 17; Pulse Ox 98% on R/A; Pain 2/10; nw10/27 19:46 Pain Scale: Adult tl4 21:27 Pain Scale: Adult me1 02:00 Pain Scale: Adult 1 10/27 21:27 notified Dieter Page of change in HR. me1 22:40 MDaware nw1 [place] Coma Score: 22:06 Eye Response: spontaneous(4). Motor Response: obeys commands(6). Verbal Response: nw1 oriented(5). Total: 15. MDM: 19:35 Patient medically screened. cp 23:55 Data reviewed: vital signs, nurses notes, lab test result(s), EKG, radiologic studies, cp CT scan. 23:55 The patient was given aspirin in the Emergency Department. Management of patient was cp discussed with the following: Hospitalist: will admit after discussion. Independent interpretation of the following test(s) in the Emergency Department EKG: See my EKG interpretation above. Counseling: I had a detailed discussion with the patient and/or guardian regarding the historical points, exam findings, and any diagnostic results supporting the discharge/admit diagnosis, lab results, radiology results. Response to treatment: the patient's symptoms have mildly improved after treatment. 10/27 19:45 Order name: Basic Metabolic Panel; Complete Time: 22:19 cp 10/27 23:01 Interpretation: Normal except: K 3.4; GLUC 115; CRE 1.03; GFR 65. cp 10/27 19:45 Order name: CBC with Diff; Complete Time: 22:19 cp 10/27 23: Interpretation: Normal except: MPV 7.5; JANIS% 75.4. cp 10/27 19:45 Order name: D-Dimer; Complete Time: 22:19 cp 10/27 19:45 Order name: LFT's; Complete Time: 22:19 cp 10/27 23:30 Interpretation: Normal except: AST 14; ALK 151; GLOB 3.8; A/G 0.9. cp 10/27 19:45 Order name: Magnesium; Complete Time: 22:19 cp 10/27 19:45 Order name: NT PRO-BNP; Complete Time: 22:19 cp 10/27 19:45 Order name: PT-INR; Complete Time: 22:19 cp 10/27 19:45 Order name: Troponin HS; Complete Time: 22:19 cp 10/27 23:30 Interpretation: Reviewed. cp 10/27 19:45 Order name: Urinalysis W/Microscopic; Complete Time: 23:01 cp 10/27 23:01 Interpretation: Normal except: UCLA Turbid; UESTR 75. cp 10/27 21:39 Order name: UDS; Complete Time: 23:01 cp 10/28 01:07 Order name: Urinalysis w/ reflexes EDMD 10/28 01:07 Order name: CBC with Automated Diff EDMS 10/28 01:07 Order name: CBC with Automated Diff EDMS 10/28 01:07 Order name: Comprehensive Metabolic Panel EDMD 10/28 01:07 Order name: Comprehensive Metabolic Panel EDMD 10/28 01:07 Order name: Magnesium EDMS 10/28 01:07 Order name: Magnesium EDMS 10/28 01:07 Order name: Phosphorus EDMS 10/28 01:07 Order name: Phosphorus EDMS 10/28 01:10 Order name: Thyroid Stimulating Hormone EDMD 10/28 01:24 Order name: Lipid Profile EDMD 10/28 01:29 Order name: Basic Metabolic Panel EDMD 10/28 01:29 Order name: Magnesium EDMS 10/27 19:45 Order name: XRAY Chest (1 view); Complete Time: 22:19 cp 10/27 22:23 Order name: CT Chest For PE Angio 10/27 19:45 Order name: EKG; Complete Time: 19:46 cp 10/28 01:07 Order name: CONS Physician Consult EDMD 10/27 19:45 Order name: Cardiac monitoring; Complete Time: 19:46 cp 10/27 19:45 Order name: EKG - Nurse/Tech; Complete Time: 19:46 cp 10/27 19:45 Order name: IV Saline Lock; Complete Time: 20:03 cp 10/27 19:45 Order name: Labs collected and sent; Complete Time: 20:03 cp 10/27 19:45 Order name: O2 Per Protocol; Complete Time: 19:46 cp 10/27 19:45 Order name: O2 Sat Monitoring; Complete Time: 19:46 cp Administered Medications: 20:03 Drug: Aspirin PO Chewable Tablet 324 mg PO once; 81 mg tablets x 4 Route: PO; tl4 20:08 Drug: Ativan IVP 0.5 mg IVP once Route: IVP; Site: left antecubital; me1 20:15 Follow up: Response: No adverse reaction; Anxiety decreased me1 21:53 Follow up: Response: No adverse reaction; Anxiety decreased me1 22:36 Drug: NS 0.9% IV 1000 ml IV at 1 bolus Per protocol; 1000 mL bolus Route: IV; Rate: 1 nw1 bolus; Site: left antecubital; 22:36 Drug: Labetalol IV 10 mg IV at calculated rate once over 2 mins; For SBP greater than nw1 140. Hold for HR less than 60, notify provider. Route: IV; Rate: calculated rate; Infused Over: 2 mins; Site: left antecubital; 22:36 Not Given (Patient Refused): morphineor iv 4 mg IVP once over 4 mins nw1 22:36 Drug: Potassium PO Effervescent Tablet 25 mEq PO once; dissolve in 4 ounces of water or nw1 juice Route: PO; Disposition: 10/28 03:58 Co-signature as Attending Physician, Juanjo Yin MD I agree with the assessment and kdr plan of care. Disposition Summary: 10/27/23 23:58 Hospitalization Ordered Notes: Hospitalization Status: Observation cp Provider: Khanh Cole [facility] cp Condition: Stable cp Problem: new cp Symptoms: have improved cp Bed/Room Type: Standard cp Room Assignment: 204(10/28/23 01:35) jb4 Diagnosis - Chest pain, unspecified cp Forms: - Medication Reconciliation Form cp - SBAR form cp - Leadership Thank You Letter cp Signatures: Dispatcher [employer] Juanjo Morejon MD MD [facility] Dieter Cohen PA PA cp Dread Eric RN RN jb4 Peyton Ordaz RN RN me1 Renetta Robbins RN RN nw1 Balbir Thibodeaux tl4 Corrections: (The following items were deleted from the chart) 01:24 Comprehensive Metabolic Panel ordered. EDMS EDMS 01:24 Magnesium ordered. EDMS EDMS 01:35 10/27 23:58 cp jb4
--- NOTE | 2023-10-27 23:59 | ER ---
Nurse's Notes [facility] Name: April Pinto Age: 52 yrs Sex: Female : 1970 Arrival Date: 10/27/2023 Time: 19:23 Bed 16 Private MD: Diagnosis: Chest pain, unspecified Presentation: 10/27 19:46 Chief complaint: Patient states: Pt c/o sudden onset of midsternal chest pressure at tl4 1900 tonight while sitting. Pt states she has had nausea all day. Pt states she has increased stress this week. Pt has holter monitor in place for previous episodes of chest pain. Coronavirus screen: Vaccine status: Patient reports receiving the 2nd dose of the covid vaccine. Ebola Screen: Patient negative for fever greater than or equal to 101.5 degrees Fahrenheit, and additional compatible Ebola Virus Disease symptoms Patient denies exposure to infectious person. Patient denies travel to an Ebola-affected area in the 21 days before illness onset. No symptoms or risks identified at this time. Initial Sepsis Screen: Does the patient meet any 2 criteria? No. Patient's initial sepsis screen is negative. Does the patient have a suspected source of infection? No. Patient's initial sepsis screen is negative. Risk Assessment: Do you want to hurt yourself or someone else? Patient reports no desire to harm self or others. Onset of symptoms was October 27, 2023 at 19:00. 19:46 Method Of Arrival: Ambulatory tl4 19:46 Acuity: LUDMILA 2 tl4 Triage Assessment: 20:03 General: Appears distressed, Behavior is calm, cooperative. Pain: Complains of pain in tl4 chest Pain radiates to right arm, left arm and back of neck Quality of pain is described as aching, Pain began suddenly. EENT: No deficits noted. No signs and/or symptoms were reported regarding the EENT system. Neuro: No deficits noted. Cardiovascular: Reports chest pain, diaphoresis, lightheadedness, nausea. Respiratory: No deficits noted. Breath sounds are clear bilaterally. Denies cough, shortness of breath. GI: Reports nausea, Patient currently denies abdominal pain, diarrhea, vomiting. : No deficits noted. No signs and/or symptoms were reported regarding the genitourinary system. Derm: No deficits noted. Historical: - Allergies: 19:49 No Known Allergies; tl4 - Home Meds: 19:49 propranolol 10 mg Oral tab 1 tab 3 times per day [Active]; citalopram 10 mg oral tablet tl4 1 tab daily [Active]; - PMHx: 19:49 Atrial fibrillation; Anxiety; tl4 - PSHx: 19:49 Cholecystectomy; tl4 - Immunization history:: Adult Immunizations unknown. - Social history:: Smoking status: Patient denies any tobacco usage or history of. Screenin:05 [facility] ED Fall Risk Assessment (Adult) History of falling in the last 3 months, tl4 including since admission No falls in past 3 months (0 pts) Confusion or Disorientation No (0 pts) Intoxicated or Sedated No (0 pts) Impaired Gait No (0 pts) Mobility Assist Device Used No (0 pt) Altered Elimination No (0 pt) Score/Fall Risk Level 0 - 2 = Low Risk Oriented to surroundings, Maintained a safe environment, Educated pt \T\ family on fall prevention, incl call for assistance when getting out of bed, Assessed \T\ reinforced patient's understanding of fall precautions, Provided non-skid footwear, Hourly rounding (assess needs \T\ fall precautionary measures) done, Used ambulatory aids as needed (educated on \T\ assisted with), Used gait belt as appropriate. Abuse screen: Denies threats or abuse. Denies injuries from another. Nutritional screening: No deficits noted. Tuberculosis screening: No symptoms or risk factors identified. Assessment: 19:30 General: Appears uncomfortable, well groomed, well developed, well nourished, Behavior me1 is calm, cooperative, appropriate for age. General: Pt c/o sudden onset of midsternal chest pressure at 1900 tonight while sitting. Pt states she has had nausea all day. Pt states she has increased stress this week. Pt has holter monitor in place for previous episodes of chest pain.. Pain: Complains of pain in back of neck and left arm and right arm and chest Pain does not radiate. Pain currently is 8 out of 10 on a pain scale. Quality of pain is described as pressure, Pain began suddenly. 19:30 Neuro: Level of Consciousness is awake, alert, obeys commands, Oriented to person, me1 place, time, situation, Appropriate for age. Cardiovascular: Capillary refill < 3 seconds Patient's skin is warm and dry. Respiratory: Airway is patent Trachea midline Respiratory effort is even, unlabored, Respiratory pattern is regular, symmetrical. 22:17 Reassessment: Report received from [place] Todd. Urine to collect and send at this time nw1 and pt to receive IV medications. Assumed care at this time. n. 10/28 00:26 Reassessment: Admitting MD at bedside. Vital Signs: 10/27 19:46 BP 182 / 90; Pulse 87; Resp 14; Temp 98.3(O); Pulse Ox 96% on R/A; Pain 0/10; tl4 20:30 BP 137 / 75; Pulse 76; Resp 11; Pulse Ox 95% on R/A; me1 21:27 BP 155 / 84; Pulse 130; Resp 12; Pulse Ox 97% on R/A; Pain 5/10; me1 21:27 BP 144 / 82; Pulse 84; Resp 13; Pulse Ox 97% on R/A; me1 22:06 BP 144 / 82; Pulse 79; Pulse Ox 96% on R/A; nw1 22:40 BP 143 / 83; Pulse 127; Resp 19; Pulse Ox 98% on R/A; nw1 23:20 BP 128 / 84; Pulse 79; Pulse Ox 95% on R/A; nw1 23:30 BP 130 / 71; Pulse 78; Resp 17; Pulse Ox 95% ; nw1 10/28 00:00 BP 120 / 73; Pulse 76; Pulse Ox 94% on R/A; nw1 02:00 BP 116 / 66; Pulse 79; Resp 17; Pulse Ox 98% on R/A; Pain 2/10; nw1 10/27 19:46 Pain Scale: Adult tl4 21:27 Pain Scale: Adult me1 02:00 Pain Scale: Adult nw1 10/27 21:27 notified Dieter Cohen of change in HR. me1 22:40 MDaware nw1 [place] Coma Score: 22:06 Eye Response: spontaneous(4). Motor Response: obeys commands(6). Verbal Response: nw1 oriented(5). Total: 15. ED Course: 19:26 Patient arrived in ED. tl4 19:30 No provider procedures requiring assistance completed. Patient maintains SpO2 me1 saturation greater than 95% on room air. 19:35 Page, Dieter, PA is PHCP. cp 19:35 Abisai Childs MD is Attending Physician. cp 19:42 Peyton Ordaz, RN is Primary Nurse. me1 19:48 Triage completed. tl4 19:50 Arm band placed on Patient placed in an exam room, on a stretcher. tl4 20:00 XRAY Chest (1 view) In Process Unspecified. EDMS 20:03 Basic Metabolic Panel Sent. tl4 20:03 CBC with Diff Sent. tl4 20:03 D-Dimer Sent. tl4 20:03 LFT's Sent. tl4 20:03 Magnesium Sent. tl4 20:03 NT PRO-BNP Sent. tl4 20:03 PT-INR Sent. tl4 20:03 Troponin HS Sent. tl4 20:05 Patient has correct armband on for positive identification. Placed in gown. Bed in low tl4 position. Call light in reach. Side rails up X2. Provided Education on: ED process. Client placed on continuous cardiac and pulse oximetry monitoring. NIBP monitoring applied. engineer intern on. Door closed. Noise minimized. Moved to private room. Warm blanket given. 20:15 Juanjo Yin MD is Attending Physician. cp 23:14 CT Chest For PE Angio In Process Unspecified. EDMS 23:15 Renetta Robbins, [place] is Primary Nurse. nw1 23:57 Khanh Cole MD is Hospitalizing Provider. cp 10/28 02:00 Patient admitted, IV remains in place. nw1 Administered Medications: 10/27 20:03 Drug: Aspirin PO Chewable Tablet 324 mg PO once; 81 mg tablets x 4 Route: PO; tl4 20:08 Drug: Ativan IVP 0.5 mg IVP once Route: IVP; Site: left antecubital; me1 20:15 Follow up: Response: No adverse reaction; Anxiety decreased me1 21:53 Follow up: Response: No adverse reaction; Anxiety decreased me1 22:36 Drug: NS 0.9% IV 1000 ml IV at 1 bolus Per protocol; 1000 mL bolus Route: IV; Rate: 1 nw1 bolus; Site: left antecubital; 22:36 Drug: Labetalol IV 10 mg IV at calculated rate once over 2 mins; For SBP greater than nw1 140. Hold for HR less than 60, notify provider. Route: IV; Rate: calculated rate; Infused Over: 2 mins; Site: left antecubital; 22:36 Not Given (Patient Refused): morphineor iv 4 mg IVP once over 4 mins nw1 22:36 Drug: Potassium PO Effervescent Tablet 25 mEq PO once; dissolve in 4 ounces of water or nw1 juice Route: PO; Medication: 20:05 VIS not applicable for this client. tl4 Outcome: 23:58 Decision to Hospitalize by Provider. cp 10/28 02:00 Admitted to Tele accompanied by nurse, room 204, with chart, Report called to [place] Burgos nw1 Condition: stable Instructed on the need for admit, 03:39 Patient left the ED. jb4 Signatures: Dispatcher [employer] EDMS Dieter Cohen PA PA cp Bryson, James, RN RN jb4 Peyton Ordaz RN RN me1 Renetta Robbins RN RN nw1 LogBalbir burden tl4 Corrections: (The following items were deleted from the chart) 10/27 22:05 19:46 Chief complaint: Patient states: Pt c/o sudden onset of midsternal chest pressure me1 at 1900 tonight while sitting. Pt states she has had nausea all day. Pt states she has increased stress this week. Pt has holter monitor in place for previous episodes of chest pain. tl4 10/28 00: 00:00 BP 130 / 71; Pulse 78bpm; Resp 17bpm; Pulse Ox 95%; nw1 nw1
[2023-10-28] MEDS ORDERED: ONDANSETRON 4 MG/2 ML VIAL IV PRN (01:03)
[2023-10-28] MEDS ORDERED: POTASSIUM CL SA 10 MEQ TAB PO ONE (01:07)
--- NOTE | 2023-10-28 01:33 | P.HP ---
Certification for Inpatient Patient admitted to: Observation With expected LOS: <2 Midnights Practitioner: I am a practitioner with admitting privileges, knowledge of patient current condition, hospital course, and medical plan of care. Services: Services provided to patient in accordance with Admission requirements found in Title 42 Section 412.3 of the Code of Federal Regulations Patient History Date of Service: 10/28/23 Reason for admission: Chest pain History of Present Illness: 52-year-old female with a history of atrial flutter, hypertension and anxiety presented to the ED with midsternal chest pain that worsened today, radiated to the back and both arms and associated with nausea and lightheadedness. She states she has been having intermittent chest pain for the last few weeks however she never had any lightheadedness and nausea with them. She currently takes propranolol for the last 6 to 7 years for her atrial flutter. Also states she had a Holter monitor previously. She also had stress test done Tuesday of this week but does not know the results. She denied any leg swelling, dyspnea on exertion, shortness of breath and cough. On arrival to the ER initial blood pressure was 182/90 and pulse of 87 however during the course of the night she alternated with heart rate in the 120s to 130s. Labs showed potassium of 3.4 and creatinine 1.03, baseline is unknown. Chest x-ray is negative for acute findings. EKG showed sinus tachycardia with heart rate of 126. She received labetalol, IV fluid bolus, 0.5 mg IV Ativan and 324 mg aspirin. Review of Systems 10-point ROS is otherwise unremarkable Physical Examination - Vital Signs Temperature: 98.3 F Blood Pressure: 143/83 Pulse: 127 Respirations: 19 Pulse Ox (%): 98 - Physical Exam General: Alert, In no apparent distress, Oriented x3 HEENT: Atraumatic, Normocephalic Neck: Supple, JVD not distended, No Thyromegaly Respiratory: Clear to auscultation bilaterally, Normal air movement Cardiovascular: No edema, Irregular heart rate/rhythm Gastrointestinal: Normal bowel sounds, Non-distended, No tenderness Musculoskeletal: No swelling, No erythema, No tenderness Integumentary: No rashes Neurological: Normal gait, Normal speech, Normal strength at 5/5 x4 extr - Studies Laboratory Data (last 24 hrs) 10/28/23 10/27/23 10/27/23 01:20 20:00 20:00 WBC 9.40 Hgb 13.0 Hct 38.6 Plt Count 333 PT 12.2 INR 1.11 Sodium Cancelled Potassium Cancelled BUN Cancelled Creatinine Cancelled Glucose Cancelled Magnesium Cancelled Total Bilirubin Cancelled AST Cancelled ALT Cancelled Alkaline Phosphatase Cancelled 10/27/23 20:00 WBC Hgb Hct Plt Count PT INR Sodium 136 Potassium 3.4 L BUN 12 Creatinine 1.03 H Glucose 115 H Magnesium 2.3 Total Bilirubin 0.4 AST 14 L ALT 29 Alkaline Phosphatase 151 H Assessment and Plan - Plan Chest pain Suspect secondary to intermittent a flutter Patient reports recent stress test, result unknown Monitor on telemetry Continue aspirin Follow-up lipid panel Consult cardiology Atrial flutter Switch propranolol to metoprolol Replace potassium TSH Anxiety Takes citalopram - Advance Directives Does patient have a Living Will: No Does patient have a Durable POA for Healthcare: No
[2023-10-28 03:44] VITALS: BMI 41.5
[2023-10-28 03:59] VITALS: O2SAT 96
[2023-10-28] MEDS: ACETAMINOPHEN 325 MG TABLET PO PRN ×2 (04:19→16:51)
[2023-10-28] MEDS ORDERED: METOPROLOL TAR 25 MG TAB PO SCH (06:00)
[2023-10-28] MEDS ORDERED: INFLUENZA VACCINE (for 6+ mo) 0.5 ML DOSE IMVAC ONE (08:00)
[2023-10-28 08:08] LABS: Magnesium 2.2 mg/dL (1.6-2.4); Potassium 3.6 mEq/L (3.5-5.1); Thyroid Stimulating Hormone 2.86 uIU/mL (0.358-3.740)
[2023-10-28] MEDS ORDERED: ENOXAPARIN 40 MG/0.4 ML SQ SCH (09:00)
[2023-10-28] MEDS ORDERED: ASPIRIN EC 81 MG TAB PO SCH (09:00)
[2023-10-28 14:28] VITALS: BP 132/74; TEMP 98.6
--- NOTE | 2023-10-28 16:01 | RAD REPORT ---
EXAM DESCRIPTION: CT - Chest For Pe Angio - 10/28/2023 6:35 am CLINICAL HISTORY: The patient is 52 years old and is Female; CHEST PAIN TECHNIQUE: Axial computed tomographic angiography images of the chest with intravenous contrast. S agittal and coronal reformatted images were created and reviewed. This CT exam was performed using one or more of the following dose reduction techniques: automated exposure control, adjustment of t he mA and/or kV according to patient size, and/or use of iterative reconstruction technique. MIP reconstructed images were created and reviewed. COMPARISON: No relevant prior studies available. FINDINGS: PULMONARY ARTERIES: There are no obvious filling defects identified within the pulmonary arteries to suggest pulmonary embolism. AORTA: No acute findings. No thoracic aortic aneurysm. LUNGS: Unremarkable. No mass. No consolidation. PLEURAL SPACE: Unremarkable. No significant effusion. No pneumothorax. HEART: Unremarkable. No cardiomegaly. No significant pericardial effusion. No evidence of R V dysfunction. BONES/JOINTS: No acute fracture. No dislocation. SOFT TISSUES: Unremarkable. LYMPH NODES: Unremarkable. No enlarged lymph nodes. LIVER: The liver is enlarged and diffusely fatty. GALLBLADDER AND BILE DUCTS: Surgical clips are present in the right upper quadrant, consistent wi th previous cholecystectomy. IMPRESSION: No evidence of pulmonary embolism. Electronically signed by: Rosette Bacon MD 10/27/2023 11:24 PM TURN SEWER Due to temporary technical issues with the PACS/Fluency reporting system, reports are being signed by the in house radiologists without review as a courtesy to insure prompt reporting. The interpreting radiologist is fully responsible for the content of the report.
--- NOTE | 2023-10-28 16:32 | P.DS ---
Admission Date: 10/28/23 Discharge Date: 10/28/23 Disposition: ROUTINE DISCHARGE Discharge Condition: FAIR Reason for Admission: Chest pain - Problems (1) Chest pain Current Visit: Yes Status: Acute (2) Atrial flutter Current Visit: Yes Status: Acute (3) Hypertension Current Visit: Yes Status: Acute (4) Anxiety disorder Current Visit: Yes Status: Acute Brief History of Present Illness: 52-year-old female with a history of atrial flutter, hypertension and anxiety presented to the ED with midsternal chest pain, associated with nausea and light headedness. She reported intermittent chest pain for a few weeks, however she never had any lightheadedness and nausea with them. She currently takes propranolol for her atrial flutter. Also states she had a Holter monitor previously. She also had stress test done 4 days prior but did not know the results. She denied any leg swelling, dyspnea on exertion, shortness of breath and cough. On arrival to the ER initial blood pressure was 182/90 and pulse of 87 however during the course of the night she alternated with heart rate in the 120s to 130s. Labs showed potassium of 3.4 and creatinine 1.03, baseline is unknown. Chest x-ray is negative for acute findings. EKG showed sinus tachycardia with heart rate of 126. She received labetalol, IV fluid bolus, 0.5 mg IV Ativan and 324 mg aspirin. Patient hospitalized for further evaluation and management. Hospital Course: Patient was placed under observation on the medical floor. Troponin trended negative. Patient was seen by cardiology Dr. Briggs who reviewed her stress test done about [address] Briggs reported the stress test was negative and recommended patient's propranolol dose to be increased from 20 mg daily to 20 mg twice daily, and discharge for follow-up with him as outpatient. Vital Signs/Physical Exam: Temp Pulse Resp BP Pulse Ox 98.6 F 72 18 132/74 95 10/28/23 12:00 10/28/23 12:00 10/28/23 12:00 10/28/23 12:10/28/23 12:00 General: Alert, In no apparent distress, Oriented x3 HEENT: Mucous membr. moist/pink, Sclerae nonicteric Neck: Supple, JVD not distended Respiratory: Clear to auscultation bilaterally, Normal air movement Cardiovascular: No edema, Regular rate/rhythm, Normal S1 S2 Gastrointestinal: Normal bowel sounds, Soft and benign, Non-distended, No tenderness Musculoskeletal: No swelling Integumentary: No rashes, No cyanosis Neurological: Normal speech, Normal strength at 5/5 x4 extr, Cranial nerves 3-12 intact Laboratory Data at Discharge: WBC 9.40 thou/uL (4.3-10.9) 10/27/23 20:00 Hgb 13.0 g/dL (12.0-15.0) 10/27/23 20:00 Hct 38.6 % (36.0-45.0) 10/27/23 20:00 Plt Count 333 thou/uL (152-406) 10/27/23 20:00 PT 12.2 SECONDS (9.5-12.5) 10/27/23 20:00 INR 1.11 10/27/23 20:00 Sodium 142 mEq/L (136-145) D 10/28/23 07:17 Potassium 3.6 mEq/L (3.5-5.1) 10/28/23 07:17 BUN 11 mg/dL (7-18) 10/28/23 07:17 Creatinine 0.86 mg/dL (0.55-1.02) 10/28/23 07:17 Glucose 106 mg/dL (74-106) 10/28/23 07:17 Magnesium 2.2 mg/dL (1.6-2.4) 10/28/23 07:17 Total Bilirubin Cancelled 10/28/23 01:20 AST Cancelled 10/28/23 01:20 ALT Cancelled 10/28/23 01:20 Alkaline Phosphatase Cancelled 10/28/23 01:20 Triglycerides 64 mg/dL (<150) 10/28/23 07:17 Cholesterol 160 mg/dL (<200) 10/28/23 07:17 HDL Cholesterol 40 mg/dL (40-60) 10/28/23 07:17 Cholesterol/HDL Ratio 4.00 10/28/23 07:17 Home Medications: Aspirin [Aspirin EC] 81 mg PO DAILY #30 tab 10/28/23 Propranolol HCl 20 mg PO BID #60 tab 10/28/23 New Medications: Aspirin [Aspirin EC] 81 mg PO DAILY #30 tab Propranolol HCl 20 mg PO BID #60 tab Diet: AHA Activity: Ad vern Followup: Carlos Burgess DO [Primary Care Provider] - 1-2 Weeks Jono Briggs MD [ACTIVE - CAN ADMIT] - 1-2 Weeks Time spent managing pt's care (in minutes): 28
--- NOTE | 2023-10-28 19:27 | CON ---
Date of Consultation: 10/28/2023 Reason For Consultation: Chest pain. History Of Present Illness: 52-year-old female, history of hypertension, atrial flutter, significant anxiety disorder, presented with chest pain and palpitations. She claimed symptoms to feel like sunita ctricity going through her body. At that time, when those symptoms happened, she had a monitor on. She took it off when she got into the hospital. She is completely asymptomatic now. Past Medical History: As outlined above in the HPI. Medications: Refer to reconciliation sheet for detailed list. Allergies: NO KNOWN DRUG ALLERGIES. Family History: No premature coronary artery disease or cancer. Social History: She does not smoke or drink. Does not use any drugs. Review of Systems: All systems reviewed and they were negative except as mentioned in the HPI. Physical Examination: Vital Signs: Reviewed. Head and Neck: Pupils are equal, reactive to light. Intact eye movements. No JVD. No cervical lym phadenopathy. Neck is supple. Thyroid is not enlarged. Lungs: Clear to auscultation bilaterally. No rhonchi, wheezing, or crackles. No accessory muscle u se. Heart: Regular rate and rhythm. No extra sounds. Abdomen: Soft, nontender. Bowel sounds positive. No organomegaly. No masses or hernia. No rigidi ty or rebound. Extremities: No edema, clubbing, or cyanosis. Intact pulses. Skin: No rash or nodule. Neurologic: Alert, awake, oriented x3. No acute focal deficits appreciated. Investigations: BUN 11, creatinine 0.86, and hemoglobin is 13. Assessment And Recommendations: 1.Chest pain. It is atypical, likely anxiety. Stress test was done in my office this past Tuesday. It was normal. From Cardiology standpoint, she can be released and I will follow up with her in the office in 2 weeks. 2.Palpitations. At the time of her symptoms, the monitor was on. We will get this monitor to be an alyzed and plan accordingly. I asked her to follow up with me in 2 weeks and to mail that monitor as soon as she possibly can. 3.Hypertension. Blood pressure is controlled. Cardiology will sign off and patient can be released to follow up with me in the office in 2 weeks. SR/MODL Voice ID: [id number] Report ID: [id number]
== END 2023-10-28 18:40 | disposition home or self-care (01) ==
LOC: ER 19:23 → 2ND 10-28 00:57
PROVIDERS: ADMIT Internal Medicine; ATTEND Internal Medicine
DX: R07.9 Chest pain, unspecified (principal); I48.92 Unspecified atrial flutter; I10 Essential (primary) hypertension; R11.0 Nausea; F41.9 Anxiety disorder, unspecified
CPT/HCPCS: 85025; 81001; 80048 ×2; 36415; 83735 ×2; 85610; 80061; 85379; 80076; 84443; 84484; 83880; 80307; 71275; 71045; Q9967; J1650; J7030; 93005; G0378

== ENCOUNTER 2024-11-07 10:50 | Emergency (ER) | payer BC, OTHER ==
--- OUTSIDE RECORDS SUMMARY | 2024-11-07 10:54 | XMS REPORT | Continuity of Care Document ---
Author Name Unknown Address [address] [facility] [place] [address] [facility] thconnect Address [address] [facility] [place] [address] Care Team Providers Care Supervisor Electronics Testing Name Role Phone ADRIANE BRISENO Attending Clinician UnaADRIANE Chapman Attending Clinician Unava ilCLAUDE Miles Attending Clinician Unavailable GENET WEBSTER Attending Clinician Unavailable SILVIA LUA Attending Clinician Unavailab le LAB90 Attending Clinician Unavailable SCAR MARIO Attending Clinician Unavailable MEME GARCÍA Attending Clinician Moriah FABIOLA William Attending Clinician Unavailable ALEXA SHIRLEY Attending Clinician Unavailable MIKA SANDRA Attending Clinician Unavailab LEELA Fan Attending Clinician Unavaila KRYSTAL Horn Attending Clinician Unavailable MD LAURO Attending Clinician Unavailab BALTA Wise Attending Clinician Unavailable CAROLYN MCKINLEY Attending Clinician Unavaila JN Carnes Attending Clinician Unavailab reggie Briseno MD, Adriane Galaviz Attending Clinician [phone] PARRISH SHIRLEY Attending Clinician Unavailable RICHIE MAHAJAN Attending Clinician Unavailable Payers Payer Name Policy Type Policy Number Effective Date Expirati on Date Source [facility] 9 [id number] 2022 00:00:00 [facility] [id number] 1 00:00:00 Problems Condition Name Condition Details Condition Category Status Onset Date Resolution Date Last Treatment Date Treating Clinician Comments Source Well adult exam Well adult exam Disease Active 06-18 00:00: 00 Tamiko Seybold - Externa l History of cataract surgery, left History of cataract surgery, left Disease Active 06-18 00:00: 00 Tamiko Seybold - Externa l Class 3 severe obesity due to excess calories without serious comorbidit y with body mass index (BMI) of 45.0 to 49.9 in adult Class 3 severe obesity due to excess calories without serious comorbidit y with body mass index (BMI) of 45.0 to 49.9 in adult Disease Active 06-18 00:00: 00 Tamiko Nogueiraybold - Externa l No known active problems No known active problems Disease Tamiko Seybold - Externa l Anxiety Anxiety Disease Active Tamiko Seybold - Externa l Allergies, Adverse Reactions, Alerts Allergy Name Allergy Type Status Severity Reaction(s) Onset Date Inactive Date Treating Clinician Comments Source NO KNOWN ALLERGIE S Drug Class Active [facility] Social History Social Habit Start Date Stop Date Quantity Comments Source Gender identity Ladyjose colon Seybold - External Sexual orientation K elsey Seybold - External ASSERTION Not Tamiko Nogueiraybold - External History of Occupation Tamiko Nogueiraybold - External History SDOH Alcohol Frequency Tamiko Dorantes bold - External History SDOH Alcohol Std Drinks Tamiko Nogueira ybold - External History SDOH Alcohol Binge Tamiko Nogueiraybhelder - External Alcoholic beverage intake 2024-09-21 00:00:00 2024-09-21 00:00:00 .14 /d Tamiko Beltran - External Tobacco use and exposure 2024-06-18 00:00:00 2024-06-18 00:00:00 Smokeless tobacco non-user Tamiko Beltran - External Alcohol intake 2023-12-29 00:00:00 2023-12-29 00:00:00 Current drinker of alcohol (finding) Tamiko Beltran - External History of Social function 2023-04-28 00:00:00 2023-04-28 00:00:00 Tamiko Patel Alcohol Comment 2022-06-21 00:00:00 2022-06-21 00:00:00 Once a year Tamiko Beltran - External Sex 2020-12-30 17:15:21 2020-12-30 17:15:21 Female (finding) Tamiko Patel Sex assigned at 1970 00:00:00 1970 00:00:00 Tamiko Vazquez External Smoking Status Start Date Stop Date Source Never smoked tobacco Tamkio Vazquez External Medications Ordered Medication Name Filled Medication Name Start Date Stop Date Current Medication? Ordering Clinician Indication Dosage Frequency Signature (SIG) Comments Components Source Lidocaine-H ydrocortiso ne Jurgen 3-2.5 % rectal Kit 2023-10 09:59: 14 Yes APPLY SMALL AMOUNT TO RECTAL BID PRN. Rectal for 10 Tamiko Ruby weber Escitalopra m Oxalate 20 MG oral Tablet 2023-10 09:58: 47 09-21 00:00 :00 No 20mg QD Take 1 tablet (20 mg total) by mouth daily. Tamiko weber Azithromyci n 250 MG oral Tablet 2023-10 00:00: 00 09-27 05:59 :00 Yes [id number] Take 2 tablets by mouth on day 1 then 1 tablet by mouth daily for 4 days thereafter .. Tamiko weber Citalopram Hydrobromid e 20 MG oral Tablet 2023-10 00:00: 00 Yes 20mg QD Take 1 tablet (20 mg total) by mouth daily. Tamiko Noblea l Lidocaine-H ydrocortiso ne Jurgen 3-2.5 % rectal Kit 2023-10 15:15: 56 Yes APPLY SMALL AMOUNT TO RECTAL BID PRN. Rectal for 10 Tamiko Beltran - Externa l Escitalopra m Oxalate 20 MG oral Tablet 2023-10 15:15: 56 Yes 20mg QD Take 1 tablet (20 mg total) by mouth daily. Tamiko Noblea l Lidocaine-H ydrocortiso ne Jurgen 3-2.5 % rectal Kit 07-02 16:27: 09 Yes APPLY SMALL AMOUNT TO RECTAL BID PRN. Rectal for 10 Tamiko weber Escitalopra m Oxalate 20 MG oral Tablet 07-02 16:27: 09 Yes 20mg QD Take 1 tablet (20 mg total) by mouth daily. Tamiko weber Lidocaine-H ydrocortiso ne Jurgen 3-2.5 % rectal Kit 06-26 08:28: 52 Yes APPLY SMALL AMOUNT TO RECTAL BID PRN. Rectal for 10 Tamiko weber Escitalopra m Oxalate 20 MG oral Tablet 06-26 08:28: 52 Yes 20mg QD Take 1 tablet (20 mg total) by mouth daily. Tamiko weber Lidocaine-H ydrocortiso ne Jurgen 3-2.5 % rectal Kit 06-18 16:26: 04 Yes APPLY SMALL AMOUNT TO RECTAL BID PRN. Rectal for 10 Tamiko weber Escitalopra m Oxalate 20 MG oral Tablet 06-18 16:26: 04 Yes 20mg QD Take 1 tablet (20 mg total) by mouth daily. Tamiko weber Escitalopra m Oxalate 20 MG oral Tablet 06-18 09:59: 57 Yes 20mg QD Take 1 tablet (20 mg total) by mouth daily. Tamiko weber Lidocaine-H ydrocortiso ne Jurgen 3-2.5 % rectal Kit 06-18 09:58: 53 Yes APPLY SMALL AMOUNT TO RECTAL BID PRN. Rectal for 10 Tamiko weber Nystatin-Tr iamcinolone 160219-6.1 UNIT/GM-% apply externally Cream 06-18 00:00: 00 Yes [id number] Apply to affected area twice daily as needed for rash. Tamiko weber Citalopram Hydrobromid e 10 MG oral Tablet 06-18 00:00: 00 09-21 00:00 :00 No [id number] 20mg QD Take 2 tablets (20 mg total) by mouth daily. Tamiko Beltran - Externa l Moxifloxaci n HCl (Vigamox) 0.5 % ophthalmic Solution 06-18 00:00: 00 07-26 00:00 :00 No 1[drp] Q.25D Place 1 drop into the right eye 4 times daily. Tamiko Beltran - Externa l prednisoLON E Acetate 1 % ophthalmic Suspension 06-18 00:00: 00 07-26 00:00 :00 No 1[drp] Q.25D Place 1 drop into the right eye 4 times daily. Tamiko Beltran - Externa l Lidocaine-H ydrocortiso ne Jurgen 3-2.5 % rectal Kit 05-24 16:43: 06 Yes APPLY SMALL AMOUNT TO RECTAL BID PRN. Rectal for 10 Tamiko Beltran - Externa l Lidocaine-H ydrocortiso ne Jurgen 3-2.5 % rectal Kit 05-18 13:41: 04 Yes APPLY SMALL AMOUNT TO RECTAL BID PRN. Rectal for 10 Tamiko Vazquez Externa l prednisoLON E Acetate 1 % ophthalmic Suspension 05-18 00:00: 00 07-26 00:00 :00 No 1[drp] Q.25D Place 1 drop into the left eye 4 times daily. Tamiko Vazquez Externa l Moxifloxaci n HCl (Vigamox) 0.5 % ophthalmic Solution 05-18 00:00: 00 06-18 00:00 :00 No 1[drp] Q.25D Place 1 drop into the left eye 4 times daily. Tamiko Vazquez Externa l Vitamin D-Vitamin K (VITAMIN K2-VITAMIN D3 OR) 05-17 00:00: 00 Yes Tamiko Vazquez Externa l Lidocaine-H ydrocortiso ne Jurgen 3-2.5 % rectal Kit 05-10 16:33: 42 Yes APPLY SMALL AMOUNT TO RECTAL BID PRN. Rectal for 10 Tamiko Beltran - Externa l Pantoprazol e Sodium 20 MG oral Tablet Delayed Response 05-10 00:00: 00 Yes [id number] 20mg QD Take 1 tablet (20 mg total) by mouth daily. Tamiko weber dexAMETHaso ne (DECADRON) 4 MG oral tablet 04-24 00:00: 00 05-10 00:00 :00 No [id number] 4mg QD Take 1 tablet (4 mg total) by mouth daily (with breakfast) . Tamiko weber PAXLOVID STANDARD (30) (300/100) Therapy Pack 04-24 00:00: 00 04-30 04:59 :00 No [id number] Take two 150 mg nirmatrelv ir (pink) tablets with one 100 mg ritonavir (white) tablet by mouth two times daily for 5 days. Tamiko weber Magnesium Citrate 1.745 GM/30ML oral Solution 01-31 00:00: 00 Yes Tamiko weber Citalopram Hydrobromid e 20 MG oral Tablet - 00:00: 00 05-10 00:00 :00 No 20mg QD Take 1 tablet (20 mg total) by mouth daily. Tamiko weber Propranolol HCl 10 MG oral Tablet 3-21 00:00: 00 05-10 00:00 :00 No 10mg Q.5D Take 1 tablet (10 mg total) by mouth 2 times daily. Tamiko weber Citalopram Hydrobromid e 10 MG oral Tablet 10-31 00:00: 00 Yes [id number] 10mg QD Take 1 tablet (10 mg total) by mouth daily. Tamiko weber hydrOXYzine HCl 25 MG oral Tablet -29 00:00: 00 Yes [id number] 25mg Q.[id number] 3D Take 1 tablet (25 mg total) by mouth every 8 hours as needed for anxiety. Tamiko weber Aspirin 81 MG oral Tablet Delayed Response 1-26 00:00: 00 05-10 00:00 :00 No 81mg 1 tablet (81 mg total). Tamiko weber CITALOPRAM & DIET MANAGE PROD OR 10-25 00:00: 00 05-10 00:00 :00 No Tamiko weber Loratadine 10 MG oral Capsule 2022-10 11:56: 44 08-12 00:00 :00 No 10mg Take 1 capsule (10 mg total) by mouth daily Tamiko weber Nystatin-Tr iamcinolone 510341-0.1 UNIT/GM-% apply externally Cream 2022-10 00:00: 00 06-18 00:00 :00 No [id number] Apply to affected area twice daily as needed for rash. Tamiko weber Pantoprazol e Sodium 20 MG oral Tablet Delayed Response 2022-10 00:00: 00 05-10 00:00 :00 No [id number] 20mg QD Take 1 tablet (20 mg total) by mouth daily. Tamiko weber Sucralfate 1 g oral Tablet 2022-10 00:00: 00 Yes 1g Take 1 tablet (1 g total) by mouth at bedtime. Tamiko weber Ondansetron HCl 4 MG oral Tablet 04-28 00:00: 00 10-31 00:00 :00 No [id number] 4mg Q.[id number] 3D Take 1 tablet (4 mg total) by mouth every 8 hours as needed for nausea Tamiko weber PAXLOVID STANDARD (30) (300/100) Therapy Pack 04-28 00:00: 00 05-04 04:59 :00 No [id number] Take two 150 mg nirmatrelv ir (pink) tablets with one 100 mg ritonavir (white) tablet by mouth two times daily for 5 days Tamiko weber Pantoprazol e Sodium 20 MG oral Tablet Delayed Response 04-15 00:00: 00 Yes [id number] 20mg Take 1 tablet (20 mg total) by mouth daily Tamiko weber Loratadine 10 MG oral Capsule 04 15:46: 18 Yes 10mg Take 1 capsule (10 mg total) by mouth daily Tamiko weber Citalopram Hydrobromid e 20 MG oral Tablet 4-04 00:00: 00 08-12 00:00 :00 No [id number] 20mg Take 1 tablet (20 mg total) by mouth daily Tamiko weber Loratadine 10 MG oral Capsule 3-20 10:41: 12 Yes 10mg Take 10 mg by mouth daily Tamiko weber KETOCONAZOL E, TOPICAL, (Nizoral) 2 % apply externally Shampoo 3-20 00:00: 00 08-12 00:00 :00 No [id number] Apply as shampoo X 5 minutes, then rinse. Use 3-5 times per week for itch and scale Tamiko weber Cetirizine (ZYRTEC) 10 MG oral Tablet 2-27 00:00: 00 08-12 00:00 :00 No Tamiko weber Loratadine (Claritin) 10 MG oral Capsule 2-17 11:24: 07 Yes 10mg Take 10 mg by mouth daily Tamiko weber Cyanocobala min (B-12) 3000 MCG oral Capsule 2-06 00:00: 00 08-12 00:00 :00 No Tamiko weber Vitamin D, Ergocalcife rol, 1.25 MG (70181 UT) oral Capsule 1-31 00:00: 00 08-12 00:00 :00 No [id number] 98529D Take 1 capsule (50,000 units total) by mouth once a week Tamiko weber Pantoprazol e Sodium 20 MG oral Tablet Delayed Response 1-16 00:00: 00 Yes [id number] TAKE 1 TABLET(20 MG) BY MOUTH DAILY Tamiko weber Nitrofurant oin Monohyd Macro (Macrobid) 100 MG oral Capsule 2021-10 0-24 00:00: 00 Yes [id number] 100mg Take 1 capsule (100 mg total) by mouth 2 times daily Tmaiko weber Fluconazole 150 MG oral Tablet 2021-10 0-24 00:00: 00 Yes Tamiko weber TRIMETHOPRI M-POLYMYXIN B 30372-5.1 UNIT/ML-% ophthalmic Solution 2021-10 0- 00:00: 00 12-20 00:00 :00 No [id number] 1[drp] Apply 1 drop to eye every 4 (four) hours Tamiko weber Cetirizine HCl (ZYRTEC ALLERGY OR) 2021-10 0- 09:24: 31 07-05 00:00 :00 No 10mg Take 10 mg by mouth daily Tamiko weber Dexamethaso ne (DECADRON) 4 MG oral tablet 2021-10 00:00: 00 Yes [id number] 4mg Take 1 tablet (4 mg total) by mouth daily (with breakfast) Tamiko weber Fluocinonid e 0.05 % apply externally Solution 06-21 00:00: 00 07-05 00:00 :00 No [id number] Apply sparingly to rash of scalp BID Mon-Tue PRN. NOT for face or folds Tamiko weber Amoxicillin -Pot Clavulanate 500-125 MG oral Tablet 2020-10 0-08 00:00: 00 Yes [id number] 010904 1{tbl} Take 1 tablet by mouth 3 times daily Tamiko Beltran traMADol-Ac etaminophen 37.5-325 MG oral Tablet 2020-10 0-06 00:00: 00 Yes [id number] 1{tbl} Q6H Take 1 tablet by mouth every 6 hours as needed for pain Tamiko Beltran hydrOXYzine HCl 25 MG oral Tablet 2020-10 0-05 00:00: 00 Yes [id number] 25mg Q.[id number] 3D Take 1 tablet (25 mg total) by mouth 3 times daily as needed for itching Tamiko Beltran Methylpredn isolone Acetate (DEPO-MEDRO L) 40 mg/mL 2020-10 0 16:45: 00 07-06 16:30 :00 No [id number] 40mg Tamiko Beltran predniSONE 20 MG oral tablet 2020-10 0-04 00:00: 00 07-12 04:59 :00 No [id number] 40mg Take 2 tablets (40 mg total) by mouth daily for 5 days Tamiko Beltran Mupirocin (BACTROBAN) 2 % apply externally Ointment 2020-10 0-03 00:00: 00 Yes APPLY TOPICALLY TO THE AFFECTED AREA TWICE DAILY DIRECTED Tamiko Beltran Triamcinolo ne Acetonide 0.1 % apply externally Ointment 2020-10 003 00:00: 00 Yes APPLY TOPICALLY TO THE AFFECTED AREA TWICE DAILY DIRECTED Tamiko Beltran Propranolol HCl 20 MG oral Tablet 4 00:00: 00 Yes 20mg Q.5D Take 1 tablet (20 mg total) by mouth 2 times daily. Tamiko Beltran - Externa l Immunizations Ordered Immunization Name Filled Immunization Name [...] Adacel) Unknown Completed Tamiko Beltran - External Tdap- (Boostrix, Adacel) Unknown Completed Tamiko Seybold - External Tdap- (Boostrix, Adacel) Unknown Completed Tamiko Seybold - External Tdap- (Boostrix, Adacel) Unknown Completed Tamiko Seybold - External Tdap- (Boostrix, Adacel) Unknown Completed Tamiko Seybold - External Tdap- (Boostrix, Adacel) Unknown Completed Tamiko Seybold - External Tdap- (Boostrix, Adacel) Unknown Completed Tamiko Seybold - External Tdap- (Boostrix, Adacel) Unknown Completed Tamiko Seybold - External Tdap- (Boostrix, Adacel) Unknown Completed Tamiko Seybold - External Tdap- (Boostrix, Adacel) Unknown Completed Tamiko Seybold - External Tdap- (Boostrix, Adacel) Unknown Completed Tamiko Seybold - External Tdap- (Boostrix, Adacel) Unknown Completed Tamiko Seybold - External Tdap- (Boostrix, Adacel) Unknown Completed Tamiko Seybold - External Tdap- (Boostrix, Adacel) Unknown Completed Tamiko Seybold - External Tdap- (Boostrix, Adacel) Unknown Completed Tamiko Seybold - External Vital Signs Vital Name Observation Time Observation Value Comments S ource Systolic blood pressure 2024-09-21 15:52:00 124 mm[Hg] Tamiko Flynno ld - External Diastolic blood pressure 2024-09-21 15:52:00 82 mm[Hg] Tamiko Flynno ld - External Heart rate 2024-09-21 15:52:00 68 /min Laron tavarez Seybold - External Body temperature 2024-09-21 15:52:00 36.22 Annamarie Tamiko Nogueiraybold - External Respiratory rate 2024-09-21 15:52:00 18 /min Tamiko Nogueiraybold - External Body height 2024-09-21 15:52:00 154.9 cm Lady colon Seybold - External Body weight 2024-09-21 15:52:00 111.188 kg Lady colon Seybold - External BMI 2024-09-21 15:52:00 46.32 kg/m2 Lady colon Seybold - External Oxygen saturation in Arterial blood by Pulse oximetry 2024-09-21 15:52:00 99 /min Tamiko Seybo ld - External Systolic blood pressure 2024-06-18 14:53:00 112 mm[Hg] Tamiko Seybo ld - External Diastolic blood pressure 2024-06-18 14:53:00 74 mm[Hg] Tamiko Seybo ld - External Heart rate 2024-06-18 14:53:00 82 /min Kelse y Seybold - External Body temperature 2024-06-18 14:53:00 35.78 Annamarie Tamiko Seybold - External Respiratory rate 2024-06-18 14:53:00 14 /min Tamiko Seybold - External Body height 2024-06-18 14:53:00 154.9 cm Lady ey Seybold - External Body weight 2024-06-18 14:53:00 111.131 kg Lady ey Seybold - External BMI 2024-06-18 14:53:00 46.29 kg/m2 Lady ey Seybold - External Systolic blood pressure 2024-05-10 21:24:00 126 mm[Hg] Tamiko Seybo ld - External Diastolic blood pressure 2024-05-10 21:24:00 82 mm[Hg] Tamiko Seybo ld - External Heart rate 2024-05-10 21:24:00 80 /min Kelse y Seybold - External Body temperature 2024-05-10 21:24:00 36.5 Annamarie Tamiko Seybold - External Respiratory rate 2024-05-10 21:24:00 20 /min Tamiko Seybold - External Body height 2024-05-10 21:24:00 154.9 cm Lady ey Seybold - External Body weight 2024-05-10 21:24:00 111.131 kg Lady ey Seybold - External BMI 2024-05-10 21:24:00 46.29 kg/m2 Lady ey Seybold - External Oxygen saturation in Arterial blood by Pulse oximetry 2024-05-10 21:24:00 100 /min Tamiko Seybo ld - External Systolic blood pressure 2023-08-12 20:56:00 130 mm[Hg] Tamiko Seybo ld - External Diastolic blood pressure 2023-08-12 20:56:00 82 mm[Hg] Tamiko Seybo ld - External Heart rate 2023-08-12 20:56:00 58 /min Kelse y Seybold - External Body temperature 2023-08-12 20:56:00 36.39 Annmaarie Tamiko Seybold - External Respiratory rate 2023-08-12 20:56:00 15 /min Tamiko Seybold - External Body height 2023-08-12 20:56:00 154.9 cm Lady ey Seybold - External Body weight 2023-08-12 20:56:00 102.513 kg Lady ey Seybold - External BMI 2023-08-12 20:56:00 42.70 [...] External Heart rate 2022-11-19 17:24:00 71 /min Kelse y Seybold - External Body temperature 2022-11-19 [...] 2021-07-06 15:57:00 40.24 kg/m2 Lady ey Seybold Encounters Start Date/Time End Date/Time Encounter Type Admission Type Attending [facility] Care Department Encounter ID Source 2021-09-24 11:34:47 Outpatient ADRIANE BRISENO [facility] [id number] [facility] 2024-09-21 10:00:00 2024-09-21 10:00:00 Outpatient ADRIANE BRISENO [id number] [facility] 2024-09-21 00:00:00 2024-09-21 00:00:00 Outpatient TAMIKO GASTON [id number] [facility] 2024-07-26 15:35:00 2024-07-26 15:35:00 Outpatient TAMIKO GASTON [id number] [facility] 2024-07-26 15:20:00 2024-07-26 15:20:00 Outpatient CLAUDE SLOAN [id number] [facility] 2024-07-02 16:00:00 2024-07-02 16:00:00 Outpatient GENET WEBSTER [id number] [facility] 2024-06-26 08:45:00 2024-06-26 08:45:00 Outpatient IGBINOBA, GENET TAMIKO GASTON [id number] [facility] 2024-06-25 11:25:00 2024-06-25 11:25:00 Outpatient IGBINOBA, GENET TAMIKO GASTON [id number] [facility] 2024-06-18 16:00:00 2024-06-18 16:00:00 Outpatient IGBINOBA, GENET TAMIKO GASTON [id number] [facility] 2024-06-18 10:00:00 2024-06-18 10:00:00 Outpatient SILVIA LUA TAMIKO GASTON [id number] [facility] 2024-06-12 08:15:00 2024-06-12 08:15:00 Outpatient IGBINOBA, GENETBrianna GASTON [id number] [facility] 2024-06-11 12:15:00 2024-06-11 12:15:00 Outpatient IGBINOBA, GENET TAMIKO GASTON [id number] [facility] 2024-06-11 10:30:00 2024-06-11 10:30:00 Outpatient SILVIA LUA TAMIKO GASTON [id number] [facility] 2024-06-11 09:30:00 2024-06-11 09:30:00 Outpatient SILVIA LUA TAMIKO GASTON [id number] [facility] 2024-05-30 00:00:00 2024-05-30 00:00:00 Outpatient TAMIKO GASTON [id number] [facility] 2024-05-29 11:00:00 2024-05-29 11:00:00 Outpatient IGBINOBA, GENET GASTON [id number] [facility] 2024-05-24 00:00:00 2024-05-24 00:00:00 Outpatient TAMIKO GASTON [id number] [facility] 2024-05-24 00:00:00 2024-05-24 00:00:00 Outpatient IGBINOBA, GENET GASTON [id number] [facility] 2024-05-21 00:00:00 2024-05-21 00:00:00 Outpatient TAMIKO GASTON [id number] [facility] 2024-05-21 00:00:00 2024-05-21 00:00:00 Outpatient TAMIKO GASTON [id number] [facility] 2024-05-18 13:30:00 2024-05-18 13:30:00 Outpatient IGBINERIKA, GENET GASTON [id number] [facility] 2024-05-17 13:30:00 2024-05-17 13:30:00 Outpatient IGBINERIKA, GENET GASTON [id number] [facility] 2024-05-14 10:45:00 2024-05-14 10:45:00 Outpatient LAB90 TAMIKO GASTON [id number] [facility] 2024-05-10 16:30:00 2024-05-10 16:30:00 Outpatient SILVIA LUA [id number] [facility] 2024-04-26 00:00:00 2024-04-26 00:00:00 Outpatient SCAR MARIO [id number] [facility] 2024-04-24 09:30:00 2024-04-24 09:30:00 Outpatient HAIJOCELYN MEME TAMIKO GASTON [id number] [facility] 2024-04-24 08:30:00 2024-04-24 08:30:00 Outpatient KIAH, GUILÓPEZSaida TAMIKO GASTON [id number] [facility] 2024-03-13 15:00:00 2024-03-13 15:00:00 Outpatient SCAR MARIO [id number] [facility] 2024-01-12 14:00:00 2024-01-12 14:00:00 Outpatient IGGENET PATEL [id number] [facility] 2023-12-29 11:00:00 2023-12-29 11:00:00 Outpatient ALEXA SHIRLEY [id number] [facility] 2023-11-17 00:00:00 2023-11-17 00:00:00 Outpatient SCAR MARIO [id number] [facility] 2023-11-07 09:15:00 2023-11-07 09:15:00 Outpatient ADRIANE BRISENO TAMIKO GASTON [id number] [facility] 2023-10-31 09:15:00 2023-10-31 09:15:00 Outpatient MIKA SANDRA TAMIKO GASTON [id number] [facility] 2023-10-25 00:00:00 2023-10-25 00:00:[address] TAMIKO GASTON [id number] [facility] 2023-10-19 00:00:00 2023-10-19 00:00:00 Outpatient TAMIKO GASTON [id number] [facility] 2023-10-06 00:00:00 2023-10-06 00:00:00 Outpatient RICHARDGonzalo SCAR TAMIKO GASTON [id number] [facility] 2023-09-20 00:00:00 2023-09-20 00:00:00 Outpatient RICHARDGonzalo SCAR TAMIKO GASTON [id number] [facility] 2023-09-15 00:00:00 2023-09-15 00:00:00 Outpatient RICHARDGonzalo SCAR GASTON [id number] [facility] 2023-08-12 15:00:00 2023-08-12 15:00:00 Outpatient RICHARDGonzalo SCAR TAMIKO GASTON [id number] [facility] 2023-08-06 00:00:00 2023-08-06 00:00:00 Outpatient RICHARDGonzalo SCAR TAMIKO GASTNO [id number] [facility] 2023-07-21 10:45:00 2023-07-21 10:45:00 Outpatient CEEKRYSTAL THORNTON [id number] [facility] 2023-07-07 10:00:00 2023-07-07 10:00:00 Outpatient CEEKRYSTAL THORNTON [id number] [facility] 2023-07-04 00:00:00 2023-07-04 00:00:00 Outpatient TAMIKO GASTON [id number] [facility] 2023-07-04 00:00:00 2023-07-04 00:00:00 Outpatient TAMIKO GASTON [id number] [facility] 2023-06-24 00:00:00 2023-06-24 00:00:00 Outpatient TAMIKO GASTON [id number] [facility] 2023-06-09 00:00:00 2023-06-09 00:00:00 Outpatient SCAR MARIO [id number] [facility] 2023-05-27 00:00:00 2023-05-27 00:00:00 Outpatient TAMIKO GASTON [id number] [facility] 2023-05-24 00:00:00 2023-05-24 00:00:00 Outpatient ADRIANE BRISENO [id number] [facility] 2023-05-24 00:00:00 2023-05-24 00:00:00 Outpatient MD TAMIKO LUJAN [id number] [facility] 2023-05-23 00:00:00 2023-05-23 00:00:00 Outpatient ADRIANE BRISENO [id number] [facility] 2023-05-09 00:00:00 2023-05-09 00:00:00 Outpatient ADRIANE BRISENO [id number] [facility] 2023-05-09 00:00:00 2023-05-09 00:00:00 Outpatient ADRIANE BRISENO [id number] [facility] 2023-05-09 00:00:00 2023-05-09 00:00:00 Outpatient TAMIKO GASTON [id number] [facility] 2023-05-09 00:00:00 2023-05-09 00:00:00 Outpatient TAMIKO GASTON [id number] [facility] 2023-05-09 00:00:00 2023-05-09 00:00:00 Outpatient TAMIKO GASTON [id number] [facility] 2023-04-28 09:30:00 2023-04-28 09:30:00 Outpatient KRYSTAL MIKE [id number] [facility]bold 2023-04-28 08:45:00 2023-04-28 08:45:00 Outpatient SHELTONBALTA ROWE TAMIKO GASTON [id number] [facility] 2023-04-19 00:00:00 2023-04-19 00:00:00 Outpatient MD TAMIKO LUJAN [id number] [facility] 2023-04-14 00:00:00 2023-04-14 00:00:00 Outpatient SCAR MARIO [id number] [facility] 2023-04-13 00:00:00 2023-04-13 00:00:00 Outpatient SCAR MARIO [id number] Tamiko [facility] 2023-04-13 00:00:00 2023-04-13 00:00:00 Outpatient SCAR MARIO [id number] [facility] 2023-02-22 15:30:00 2023-02-22 15:30:[address] [id number] [facility] 2023-01-19 00:00:00 2023-01-19 00:00:00 Outpatient SCAR MARIO [id number] [facility] 2023-01-06 00:00:00 2023-01-06 00:00:[address] [id number] [facility] 2023-01-04 15:30:00 2023-01-04 15:30:[address] [id number] [facility] 2022-12-24 10:00:00 2022-12-24 10:00:00 Outpatient CAROLYN MCKINLEY [id number] [facility] 2022-12-20 10:30:00 2022-12-20 10:30:00 Outpatient JN BARRETO [id number] [facility] 2022-12-17 11:00:00 2022-12-17 11:00:00 Outpatient CAROLYN MCKINLEY [id number] [facility] 2022-12-06 09:45:00 2022-12-06 09:45:00 Outpatient TAMIKO GASTON [id number] [facility] 2022-12-01 00:00:00 2022-12-01 00:00:00 Outpatient HUNDL, SCAR GASTON [id number] [facility] 2022-11-22 00:00:00 2022-11-22 00:00:00 Outpatient HUNDL, SCAR GASTON [id number] [facility] 2022-11-19 11:15:00 2022-11-19 11:15:00 Outpatient NIKAHD, CHERYLLEIGH GASTON [id number] [facility] 2022-11-05 00:00:00 2022-11-05 00:00:00 Outpatient HUNDL, SCAR GASTON [id number] [facility] 2022-11-04 00:00:00 2022-11-04 00:00:00 Outpatient HUNDL, SCAR GASTON [id number] [facility] 2022-11-03 00:00:00 2022-11-03 00:00:00 Outpatient HUNDL, SCAR GASTON [id number] [facility] 2022-11-02 00:00:00 2022-11-02 00:00:00 Outpatient HUNDL, SCAR GASTON [id number] [facility] 2022-10-26 09:10:00 2022-10-26 09:10:00 Outpatient LAB90 TAMIKO GASTON [id number] [facility] 2022-10-21 11:00:00 2022-10-21 11:00:00 Outpatient HUNDL, SCAR GASTON [id number] [facility] 2022-10-21 00:00:00 2022-10-21 00:00:00 Outpatient HUNDL, SCAR GASTON [id number] [facility] 2022-10-18 00:00:00 2022-10-18 00:00:00 Outpatient HUNDL, SCAR GASTON [id number] [facility] 2022-10-17 00:00:00 2022-10-17 00:00:00 Outpatient SCAR MARIO TAMIKO GASTON [id number] [facility] 2022-10-06 09:45:00 2022-10-06 09:45:00 Outpatient JN BARRETO TAMIKO GASTON [id number] [facility] 2022-10-06 00:00:00 2022-10-06 00:00:00 Outpatient SHELBI SCAR GASTON [id number] [facility] 2022-10-06 00:00:00 2022-10-06 00:00:00 Outpatient TAMIKO GASTON [id number] [facility] 2022-07-26 00:00:00 2022-07-26 00:00:00 Outpatient HUNDGonzalo SCAR TAMIKO GASTON [id number] [facility] 2022-07-22 10:25:00 2022-07-22 10:25:00 Outpatient LAB90 TAMIKO GASTON [id number] [facility] 2022-07-22 09:30:00 2022-07-22 09:30:00 Outpatient HUNDGonzalo SCAR TAMIKO GASTON [id number] [facility] 2022-07-05 10:30:00 2022-07-05 10:30:00 Outpatient HUNDGonzalo SCAR TAMIKO GASTON [id number] [facility] 2022-07-05 10:00:00 2022-07-05 10:00:00 Outpatient ADRIANE BRISENO [id number] [facility] 2022-06-21 10:30:00 2022-06-21 10:30:00 Outpatient JN BARRETO TAMIKO GASTON [id number] [facility]iko Seybold 2022-06-20 00:00:00 2022-06-20 00:00:00 Outpatient HUNDGonzalo SCAR GASTON [id number] [facility] Seybold 2022-06-17 00:00:00 2022-06-17 00:00:00 Outpatient HUNDGonzalo SCAR GASTON [id number] [facility] Sey[facility] 2022-06-15 16:00:00 2022-06-15 16:00:00 Outpatient SCAR MARIO TAMIKO GASTON [id number] [facility] 2022-05-03 00:00:00 2022-05-03 00:00:00 Outpatient FINN ADRIANE TAMIKO GASTON [id number] [facility] 2022-03-26 16:45:00 2022-03-26 16:45:00 Outpatient LAB90 TAMIKO GASTON [id number] [facility] 2022-03-26 16:15:00 2022-03-26 16:30:00 Office Visit Adriane Briseno [place] [id number] [facility] 2021-10-30 00:00:00 2021-10-30 00:00:00 Outpatient TAMIKO GASTON [id number] [facility] 2021-10-30 00:00:00 2021-10-30 00:00:00 Outpatient TAMIKO GASTON [id number] [facility] 2021-10-08 00:00:00 2021-10-08 00:00:00 Outpatient ADRIANE BRISENO [id number] [facility] 2021-09-16 00:00:00 2021-09-16 00:00:00 Outpatient ADRIANE BRISENO [id number] [facility] 2021-09-16 00:00:00 2021-09-16 00:00:00 Outpatient ADRIANE BRISENO [id number] [facility] 2021-09-15 00:00:00 2021-09-15 00:00:00 Outpatient TAMIKO GASTON [id number] [facility] 2021-09-14 00:00:00 2021-09-14 00:00:00 Outpatient ADRIANE BRISENO [id number] [facility] 2021-09-14 00:00:00 2021-09-14 00:00:00 Outpatient ADRIANE BRISENO [id number] [facility] 2021-09-10 15:21:00 2021-09-10 23:59:00 Outpatient FINNADRIANE STILL [facility]SE [id number] [facility] 2021-08-18 00:00:00 2021-08-18 00:00:00 Outpatient DIA BRISENOJEANNE GASTON [id number] [facility] 2021-08-17 00:00:00 2021-08-17 00:00:00 Outpatient FINN ADRIANE GASTON [id number] [facility] 2021-08-06 00:00:00 2021-08-06 00:00:00 Outpatient FINN ADRIANE GASTON [id number] [facility] 2021-07-27 00:00:00 2021-07-27 00:00:00 Outpatient FINN ADRIANE GASTON [id number] [facility] 2021-07-17 09:30:52 2021-07-17 10:00:52 Office Visit FinnDiajeanne Galaviz [place] [id number] [facility] 2021-07-17 09:30:52 2021-07-17 10:00:52 Office Visit [place] stilljeanne Leblanc [place] [id number] 2021-07-17 00:00:00 2021-07-17 00:00:00 Outpatient FINN ADRIANE GASTON [id number] [facility] 2021-07-10 09:23:42 2021-07-10 09:53:42 Office Visit FinnDia stilljeanne Leblanc [place] [id number] [facility] 2021-07-09 00:00:00 2021-07-09 00:00:00 Outpatient FINN ADRIANE GASTON [id number] [facility] 2021-07-08 00:00:00 2021-07-08 00:00:00 Outpatient ADRIANE BRISENO TAMIKO [id number] [facility] 2021-07-07 00:00:00 2021-07-07 00:00:00 Outpatient ADRIANE BRISENO TAMIKO [id number] [facility] 2021-07-06 10:56:35 2021-07-06 11:26:35 Office Visit Adriane Briseno [id number] [facility] 2021-07-06 10:56:35 2021-07-06 11:26:35 Office Visit Adriane Briseno [id number] 2021-05-19 16:55:00 2021-05-19 16:55:00 Outpatient LAB90 TAMIKO TAMIKO [id number] [facility] 2021-05-14 08:30:00 2021-05-14 08:30:00 Outpatient LAB90 TAMIKO GASTON [id number] [facility] 2021-04-27 10:30:00 2021-04-27 10:30:00 Outpatient ADRIANE BRISENO TAMIKO GASTON [id number] [facility] 2021-04-23 16:30:00 2021-04-23 16:30:00 Outpatient ADRIANE BRISENO TAMIKO GASTON [id number] [facility] 2021-04-22 15:00:00 2021-04-22 15:00:00 Outpatient SHIRLEYSAMMIEPARRISH TAMIKO GASTON [id number] [facility] 2020-12-02 11:10:00 2020-12-02 11:10:00 Outpatient RICHIE MUNOZ [facility] [id number] [facility] 2020-12-02 11:10:00 2020-12-02 11:10:00 Outpatient RICHIE MUNOZ [facility] [id number] [facility] 2020-11-04 11:10:00 2020-11-04 11:10:00 Outpatient RICHIE MUNOZ [facility] [id number] [facility]
[2024-11-07] MEDS ORDERED: HYDROCODONE/APAP 5/325 MG TAB ONE (11:24)
[2024-11-07] MEDS ORDERED: KETOROLAC 30 MG/ML INJ ONE (11:24)
[2024-11-07] MEDS ORDERED: TDAP (DIPHTH,PERTUSS(ACELL),TET VAC) 0.5 ML VIAL IMVAC ONE (11:25)
--- NOTE | 2024-11-07 12:16 | RAD REPORT ---
EXAMINATION: XR LEFT ANKLE CLINICAL INDICATION: Female, 54 years old. L ankle injury TECHNIQUE: 3 view radiograph of the left ankle were obtained. COMPARISON: No prior exam. FINDINGS: Oblique fracture of the distal fibula. Mild/moderate adjacent soft tissue swelling. No evid ence of ankle mortise disruption. Tiny osteophyte noted medial malleolus. Small posterior calcaneal spur.
--- NOTE | 2024-11-07 13:13 | ER ---
Nurse's Notes [facility] Name: April Pinto Age: 54 yrs Sex: Female : 1970 Arrival Date: 11/07/2024 Time: 10:50 Bed 10 Private MD: Diagnosis: Distal Fibula Fracture Presentation: 11/07 11:03 Chief complaint: Patient states: Left ankle pain s/p falling. Pt states that she fell cm10 stepping off of a curb. Pt has noted swelling to her left ankle. Coronavirus screen: Client denies travel out of the [place] in the last 14 days. Ebola Screen: Patient denies travel to an Ebola-affected area in the 21 days before illness onset. Initial Sepsis Screen: Does the patient meet any 2 criteria? No. Patient's initial sepsis screen is negative. Does the patient have a suspected source of infection? No. Patient's initial sepsis screen is negative. Risk Assessment: Do you want to hurt yourself or someone else? Patient reports no desire to harm self or others. Onset of symptoms was November 07, 2024. 11:03 Method Of Arrival: Wheelchair cm10 11:03 Acuity: LUDMILA 4 cm10 Triage Assessment: 11:05 General: Appears in no apparent distress. uncomfortable, Behavior is calm, cooperative. cm10 Pain: Complains of pain in Left ankle Pain currently is 5 out of 10 on a pain scale. Neuro: No deficits noted. Level of Consciousness is awake, alert, obeys commands, Oriented to person, place, time, situation, Appropriate for age. Respiratory: No deficits noted. Airway is patent Respiratory effort is even, unlabored, Respiratory pattern is regular, symmetrical. Historical: - Allergies: 11:05 No Known Allergies; cm10 - PMHx: 11:05 Anxiety; Atrial fibrillation; cm10 - PSHx: 11:05 Cholecystectomy; cm10 - Immunization history:: Adult Immunizations up to date. - Infectious Disease History:: Denies. - Social history:: Smoking status: Patient denies any tobacco usage or history of. Screenin:39 [facility] ED Fall Risk Assessment (Adult) History of falling in the last 3 months, iw including since admission Yes- single mechanical fall (1 pt) Confusion or Disorientation No (0 pts) Intoxicated or Sedated No (0 pts) Impaired Gait No (0 pts) Mobility Assist Device Used No (0 pt) Altered Elimination No (0 pt) Score/Fall Risk Level 0 - 2 = Low Risk Oriented to surroundings, Maintained a safe environment. Abuse screen: Denies threats or abuse. Denies injuries from another. Nutritional screening: No deficits noted. Tuberculosis screening: No symptoms or risk factors identified. Assessment: 11:30 General: Appears uncomfortable, Behavior is calm, cooperative. Pain: Complains of pain iw in left lateral ankle, left medial ankle and anterior aspect of left ankle. Neuro: Level of Consciousness is awake, alert, obeys commands, Oriented to person, place, time, situation. Cardiovascular: Patient's skin is warm and dry. Respiratory: Respiratory effort is even, unlabored, Respiratory pattern is regular. Derm: Skin is intact, is healthy with good turgor. Musculoskeletal: Range of motion: limited in left ankle. 13:30 Reassessment: Patient appears in no apparent distress at this time. Patient and/or iw family updated on plan of care and expected duration. Pain level reassessed. Patient is alert, oriented x 3, equal unlabored respirations, skin warm/dry/pink. Vital Signs: 11:03 BP 110 / 63; Pulse 57; Resp 15; Temp 97.9(O); Pulse Ox 97% on R/A; Weight 111.13 kg; cm10 Height 5 ft. 2 in. ; Pain 5/10; 11:03 Body Mass Index 44.81 (111.13 kg, 157.48 cm) cm10 11:03 Pain Scale: Adult cm10 ED Course: 10:53 Patient arrived in ED. al6 10:58 Frederick Alonzo MD is Attending Physician. ec2 11:05 Triage completed. cm10 11:05 Arm band placed on right wrist. Patient placed in an exam room, on a stretcher. cm10 11:30 Patient has correct armband on for positive identification. Provided Education on: . iw 11:33 Lizet Robbins, [place] is Primary Nurse. iw 12:12 Ankle Left 3 View XRAY In Process Unspecified. EDMS 13:12 Pedro Mccord MD is Referral Physician. ec2 13:59 No provider procedures requiring assistance completed. Patient did not have IV access iw during this emergency room visit. Administered Medications: Not Given (Other): diph,pertus(acel),tetanus vac (pf)0.5 ml IM once; indicated for adults and teenagers 11 to 64 years of age 11:33 Drug: Ketorolac IM 30 mg IM once Route: IM; Site: left deltoid; iw 13:00 Follow up: Response: No adverse reaction; Pain is decreased iw 11:34 Drug: HYDROcodone-acetaminophen PO 5 mg-325 mg 2 tabs PO once Route: PO; iw 13:00 Follow up: Response: No adverse reaction; Pain is decreased iw Medication: 11:30 VIS not applicable for this client. iw Outcome: 13:12 Discharge ordered by . ec2 13:59 Discharged to home via wheelchair, with family, iw 13:59 Condition: good 13:59 Discharge instructions given to patient, Instructed on discharge instructions, follow up and referral plans. medication usage, Demonstrated understanding of instructions, follow-up care, medications, Prescriptions given X 1, 14:00 Patient left the ED. iw Signatures: Dispatcher [employer] Lizet Vázquez RN RN iw Meenu Martínez RN RN cm10 Frederick Alonzo MD MD ec2 Monik [email or web address] Corrections: (The following items were deleted from the chart) 19:46 13:59 Discharge instructions given to patient, Instructed on discharge instructions, iw follow up and referral plans. medication usage, Demonstrated understanding of instructions, follow-up care, medications, iw
--- NOTE | 2024-11-07 13:13 | EDPHYS ---
Physician Documentation [facility] Name: April Pinto Age: 54 yrs Sex: Female : 1970 Arrival Date: 11/07/2024 Time: 10:50 Bed 10 Private MD: ED Physician Frederick Alonzo HPI: 11/07 11:07 This 54 yrs old Female presents to ER via Wheelchair with complaints of Ankle ec2 Injury. 11:07 Patient arrives today for evaluation of a left ankle injury. Reports that she had ec2 stepped off a curb and subsequently rolled her left ankle. Denies any other pain or injuries.. Historical: - Allergies: 11: No Known Allergies; cm10 - PMHx: 11:05 Anxiety; Atrial fibrillation; cm10 - PSHx: 11:05 Cholecystectomy; cm10 - Immunization history:: Adult Immunizations up to date. - Infectious Disease History:: Denies. - Social history:: Smoking status: Patient denies any tobacco usage or history of. ROS: 11:07 Constitutional: as per hpi ec2 Exam: 11:07 Constitutional: GEN: NAD Head: atraumatic Eyes: EOMI Ears: External ears are ec2 normal. CV: regular rate LUNGS: no respiratory distress ABD: non-distended SKIN: no evidence of rashes MSK: Left ankle with significant swelling, TTP to the lateral malleolus, intact distal neurovascular status. Ecchymosis noted Vital Signs: 11:03 BP 110 / 63; Pulse 57; Resp 15; Temp 97.9(O); Pulse Ox 97% on R/A; Weight 111.13 kg; cm10 Height 5 ft. 2 in. ; Pain 5/10; 11:03 Body Mass Index 44.81 (111.13 kg, 157.48 cm) cm10 11:03 Pain Scale: Adult cm10 MDM: 11:02 Medical Screening Exam initiated ec2 11:08 Data reviewed: vital signs, nurses notes. ED course: Patient arrives today for ec2 evaluation of a left ankle injury. Examination yields MSK findings as above. Will obtain radiograph. Suspect possible fracture versus ankle sprain. Will give the patient medications for pain as well.. 13:06 ED course: Ankle x-ray shows fracture, placed patient in a short leg with stirrups and ec2 will discharge home and follow-up with orthopedic surgery. Return precautions given.. 11/07 11:06 Order name: Ankle Left 3 View XRAY; Complete Time: 12:21 ec2 11/07 12:22 Order name: Splint Leg: Short Leg; Complete Time: 13:14 ec2 11/07 12:22 Order name: Misc. Order: short posterior leg splint w/ stirrups; Complete Time: 13:14 ec2 Administered Medications: Not Given (Other): diph,pertus(acel),tetanus vac (pf)0.5 ml IM once; indicated for adults and teenagers 11 to 64 years of age 11:33 Drug: Ketorolac IM 30 mg IM once Route: IM; Site: left deltoid; iw 13:00 Follow up: Response: No adverse reaction; Pain is decreased iw 11:34 Drug: HYDROcodone-acetaminophen PO 5 mg-325 mg 2 tabs PO once Route: PO; iw 13:00 Follow up: Response: No adverse reaction; Pain is decreased iw Disposition Summary: 11/07/24 13:12 Discharge Ordered Notes: Location: Home ec2 Condition: Stable ec2 Diagnosis - Distal Fibula Fracture ec2 Followup: ec2 - With: Pedro Mccord MD - When: - Reason: Recheck today's complaints Discharge Instructions: - Discharge Summary Sheet ec2 - Ankle Fracture, [id number] ec2 Forms: - Medication Reconciliation Form ec2 - Antibiotic Education ec2 - Prescription Opioid Use ec2 - Patient Portal Instructions ec2 - Leadership Thank You Letter ec2 Prescriptions: - acetaminophen-codeine 300-30 mg Oral tablet - take 1 tablet ORAL route every 12 hours; 10 tablet; Refills: 0, Product ec2 Selection Permitted Signatures: Dispatcher [employer] Lizet Vázquez RN RN iw Martinez, Clarissa, RN RN cm10 Frederick Alonzo MD MD ec2
[2024-11-07 14:24] VITALS: BP 110/63; TEMP 97.9; O2SAT 97
== END 2024-11-07 14:00 | disposition home or self-care (01) ==
LOC: ER 10:50
PROC: 2W3RX1Z Immobilization of Left Lower Leg using Splint (ICD-10-PCS; principal; 2024-11-07)
DX: S82.832A Other fracture of upper and lower end of left fibula, initial encounter for closed fracture (principal)